=== PATIENT | female | born 1950 | race Caucasian/White ===

== ENCOUNTER 2018-12-27 13:36 | Emergency (ER) | payer MEDICARE, SELFPAY ==
[2018-12-27 13:37] VITALS: BP 156/83; PULSE 64; RESP 18; TEMP 36.6; O2SAT 99; BMI 32.1
--- NOTE | 2018-12-27 14:12 | CT_ITS ---
STUDY: CT BRAIN WITHOUT CONTRAST REASON FOR EXAM: Female, 68 years old. Dizziness, fall, hit nose and left face. RADIATION DOSAGE (If Supplied By Facility): CTDIvol = ( 44.99 ) mGy, DLP = ( 762.36 ) mGycm TECHNIQUE: Transaxial CT imaging of the brain was performed without administration of intravenous contrast material. Individualized dose optimization techniques were used for this CT. COMPARISON: No relevant priors. FINDINGS: There is minor left supraorbital soft tissue swelling. Normal calvarium. There are atherosclerotic calcifications of the distal internal carotid and vertebral arteries. There is mild cerebral atrophy with widening of the extra-axial spaces and ventricular dilatation. Normal white matter tracts of the cerebral hemispheres. Normal basal ganglia and thalami. Normal brainstem. Normal cerebellum. There is no intracranial hemorrhage. There are no findings of an acute ischemic infarction. Normal visualized paranasal sinuses. CT/Brain/Head without Contrast IMPRESSION: Chronic involutional changes of the brain. Minor left supraorbital soft tissue swelling. No acute intracranial injury. Electronically Signed: Juvenal Garcia MD at 15:02 EDT , Service support ,
--- NOTE | 2018-12-27 15:30 | ED.VISSUMM ---
- ER Visit Summary Date of Service: 12/27/18 Chief Complaint: Fall tripped History of Present Illness: The patient is a 68 F on the floor while walking no other injury other than facial injuries no loss consciousness no neck pain. Physical Examination: [] Otherwise normal exam, pupils are equal reactive, she has a supra and infraorbital ecchymoses, she has no nasal septal hematoma her GCS is 15 she has no C-spine tenderness or any other sources of injury Emergency Department Course and Treatment: CT head is negative I will discharge in stable condition with reassurance Discharge stable condition Impression: [Closed head injury] This note was generated with [employer] dictation software. It may contain incorrect words, spelling, and punctuation that were not noted in review of the chart prior to signing ED Disposition - Plan for ED Patient: Disposition: Home or Assisted Living Instructions: ED Head Injury Closed Referrals: Adiel Walls MD [Primary Care Provider] - 3-5 Days
[2018-12-27 15:45] VITALS: BP 146/79; PULSE 59; RESP 16; O2SAT 98
== END 2018-12-27 15:46 | disposition home or self-care (01) ==
PROVIDERS: Emergency Provider Emergency Medicine; Family Provider Internal Medicine; PCP Internal Medicine
DX: S09.90XA Unspecified injury of head, initial encounter (principal); W01.0XXA Fall on same level from slipping, tripping and stumbling without subsequent striking against object, initial encounter; Z91.81 History of falling; Y93.01 Activity, walking, marching and hiking; Y92.9 Unspecified place or not applicable; I10 Essential (primary) hypertension; F32.9 Major depressive disorder, single episode, unspecified; Z79.82 Long term (current) use of aspirin; Z79.899 Other long term (current) drug therapy
CPT/HCPCS: 70450; 99282

== ENCOUNTER 2024-12-23 13:24 | Inpatient (IN) | payer MEDICARE, MEDICAID, SELFPAY ==
[2024-12-23] VITALS (9 sets, daily range): BP systolic 127–215; BP diastolic 58–108; PULSE 75–114; RESP 16–20; TEMP 36.5–37; O2SAT 93–98; BMI 26.8; BMI 26.4
--- NOTE | 2024-12-23 13:44 | ED.RN ---
this rn went into pt room to do assessment when pt room had 3 visitors in room. this rn inform pt visitors only 2 people are allowed in room at a time but they can switch out as much as they would like. pt visitor alisha her hand to this rn's face and stated we know, we are figuring out who is leaving. i am staying because i have anixtey. this rn began discussing with pt about why pt was wanting to be seen when this rn was interrupted by yelling and the other pt visitor stated no she just needs to mind her [employer] business. this rn stopped talking to pt and directed attention towards the yelling pt visitor and this rn stated i am going to get security. when pt visitor alisha her finger to this rn's face and stated we were told we could all come back here but only 2 people in the room, so i WILL be standing in the hallway. this rn stated due to our policy visitors are not allowed to special investigator hallways and only 2 people in the the pt room, you do not need to yell or raise your voice. i am going to get security to deescalate this situation. this rn left the pt room and informed sanya aguirre and charge nurse ritika. this rn was informed that both pt visitors left the department yelling and verbalzing that they will be calling into administration. tg rn in triage gave them information to call.
--- NOTE | 2024-12-23 13:46 | EDS_ITS ---
HPI History of Present Illness HPI Narrative: 74-year-old female history of diabetes but currently on no medications. She has not seen her armed security officer for probably a year or more or her primary care physician. She has had a chronic ulceration on the bottom of her right heel. Family states that she will let them to help her take care of it. It is getting worse. She has swelling of her foot and is starting to smell. No prior surgery to this. Chief Complaint: Wound Informant: patient and family Onset/Context/Timing Onset: Month(s) Context: Gradual Onset Timing: Continuous Current Severity: Mild Maximum Severity: Mild Associated Symptoms Associated Symptoms: Negative for Parasthesia, Weakness or Loss of Funtion Narrative Narrative: 74-year-old female history of diabetes currently on no meds has a chronic right heel ulceration. Family states is getting worse. She has redness now the bottom of her foot, swelling and an odor to it. They deny any drainage. No fall or trauma. She has a armed security officer and a primary care physician but has not seen either for more than a year. Prior similar symptoms: Yes Recent Illness/Hospitalization: No PFSH PFSH Home Medications ?Medication ?Instructions ?Recorded ?Last Taken ?Type Ranitidine [Zantac] 300 mg PO DAILY 09/27/15 Unk nown History Verapamil Hcl [Verapamil Er] 180 mg PO DAILY 09/27/15 Unknown History albuterol sulfate 90 mcg/actuation 2 puff inhalation Q 6H PRN PRN 09/27/15 Unknown History aerosol inhaler (ProAir HFA) Shortness Of Breath aspirin 81 mg tablet,delayed 81 mg PO DAILY@0800 09/27 Unknown History release atorvastatin 40 mg tablet 40 mg PO QHS 09/27/15 Unknow n History baclofen 10 mg tablet 10 mg PO TID 09/27/15 Unknow n History enalapril maleate 20 mg tablet 20 mg PO BID 09/27/15 U nknown History (Vasotec) etodolac 500 mg tablet 500 mg PO BID 09/27/15 Unkno wn History fluticasone propionate 50 1 spray DAILY 09/27/15 Unkno wn History mcg/actuation nasal spray,suspension hydrochlorothiazide 25 mg tablet 25 mg PO DAILY Unknown History loratadine 10 mg tablet (Allergy 10 mg PO DAILY Unknown History Relief (loratadine)) metformin 500 mg tablet 500 mg PO BIDCM 09/27/15 Unk nown History multivitamin with folic acid 400 1 tab PO DAILY Unknown History mcg tablet (Thera) trazodone 50 mg tablet 50 mg PO QHS 09/27/15 Unknow n History Ibuprofen [Motrin] 800 mg PO TID PRN PRN Fever #20 08/22/16 Unknown Rx tabs benzonatate 100 mg capsule 100 mg PO TID PRN PRN Cough ##20 08/22/16 Unknown Rx oseltamivir 75 mg capsule 75 mg PO BID ##10 08/22/16 U nknown Rx Allergy/AdvReac Type Severity Reaction Status Date / Time No Known Allergies Allergy Verified 12/23/24 13:24 Social History (Updated 12/23/24 @ 14:02 by Krystal Gambino) housing: house Smoking Status: Never smoker ROS ROS ED ROS Narrative Patient denies recent illness. She denies fever. Constitutional Constitutional ED: Denies chills or fever(s) Eyes Eyes: Denies blurry vision ENT ENT ED: Denies ear pain Cardiovascular Cardiovascular: Denies chest pain Respiratory/Chest Respiratory/Chest: Denies cough or dyspnea Gastrointestinal Gastrointestinal: Denies abdominal pain, diarrhea, nausea or vomiting Genitourinary Genitourinary ED: Denies dysuria or hematuria Musculoskeletal Musculoskeletal: Denies arthralgias Integumentary Denies abscess Neurologic Neurologic: Denies headache(s) Psychiatric Psychiatric: Denies anxiety Endocrine Endocrinology: Denies polydipsia Hematologic/Lymphatic Hematologic/Lymphatic: Denies easy bleeding, easy bruising or lymphadenopathy Allergic/Immunologic Allergic/Immunologic ED: Denies mouth swelling, tongue swelling or urticaria EXAM Physical Exam Narrative Exam Narrative: 74-year-old female vital signs stable show blood pressure is elevated 215/106. She has a history of hypertension but currently taking no medications. H EENT exam pupils round react light. Moist mucous membranes. Neck nontender no JVD. No lymphadenopathy. Lungs clear to auscultation bilaterally. Heart tachycardic rate 105 no murmur. Chest wall and ribs nontender. Abdomen soft nontender. Moving all 4 extremities. Specifically the right lower leg and foot there is 1+ edema. She has a quarter sized ulceration hole in the bottom of her right heel. The bottom of her foot is red the foot is swollen. She has a palpable DP pulse. She can wiggle her toes. She has touch sensation. Currently there is no discharge. There is no pus. There is a strong odor to the wound. There is no lymphangitic streaking or inguinal lymphadenopathy. She has dorsi plantarflexion. Neurologically she is awake and alert. Answering questions following commands. No focal motor deficits. Const Vital Signs: 12/23/24 13:25 12/23/24 13:27 12/23/24 14:04 Temperature 97.7 F L 98.3 F 98.3 F Temperature Source Oral Oral Pulse Rate 114 H 82 82 Respiratory Rate 20 H 18 18 Blood Pressure 215/106 H 154/108 H 154/108 H Blood Pressure Mean 142 123 123 Pulse Ox 95 98 98 Oxygen Delivery Method Room Air Positive well nourished and well developed; Negative for cachectic, contractures or unkempt General Appearance ED: well developed and NAD; Negative for unkempt, cachectic or contractures Nutritional Appearance: Negative for cachectic HEENT Reports moist mucous membranes normocephalic and atraumatic Eyes PERRL Neck full ROM and supple Chest Wall inspection of chest normal and palpation of chest normal Resp normal respiratory effort, no retractions and clear to auscultation bilaterally Cardio regular rate, regular rhythm, S1 normal heart sound, S2 normal heart sound and no murmurs GI non-tender and no masses Auscultation: normoactive bowel sounds Palpation: soft; Negative for tender, guarding or rebound tenderness present Back/Spine no CVA tenderness Extremity full ROM; Negative for normal to inspection Extremity Narrative: Right foot swelling. Right on the bottom. Quarter sized ulceration on the heel is chronic. No discharge. Foul odor. Palpable DP pulse. Able to wiggle her toes. Normal dorsi plantarflexion. Normal touch sensation. She also has edema in her right lower leg between the knee and ankle. There is no lymphangitic streaking or inguinal lymphadenopathy. General Extremety ED: Yes edema General Extremity: edema Neuro oriented x3, CN's II-XII intact bilaterally, moves all extremities and no sensory deficits noted Sensorium / Orientation: alert, oriented to person, oriented to place and oriented to time; Negative for orientation impaired or confused Motor Exam: strength 5/5 throughout Psych mental status grossly normal Appearance: Negative for unkempt Skin No no wounds Skin Narrative: Chronic ulceration right heel. Currently infected. Cellulitis. Swollen. Foul odor. Lesions: no lesions Rashes: No no rashes MDM MDM MDM Narrative Medical decision making narrative: 74-year-old female diabetic but on no meds. Has not seen a armed security officer or primary care physician for a year or longer. Basically has an infected right heel diabetic ulcer. She will be started on Zosyn. X-ray. Labs. I will speak to the hospitalist about admission. Repeat exam unchanged at 3 PM. Hospitalist on page for admission. Patient is resting comfortably. Has been noticing a change in her right foot. I also spoke to podiatry Dr. Tyler Ware who will be consulted by the hospitalist. History & Record Review Discussion w/independent historian: Patient Additional record(s) reviewed:: Prior inpatient record, Prior outpatient record, Prior ED visit and Prior labs Lab Data Attestation: I reviewed the patient's lab results. Lab results narrative: CBC shows a white count 7.4. H&H 13 and 42. Platelets 337. Electrolytes show potassium 3.2. Gap 13. Normal BUN of 12 creatinine 0.83. Glucose 126. Sed rate is pending. Will be checked out to the hospitalist. Labs: Laboratory Results - last 24 hr 12/23/24 13:54 WBC 7.4 RBC 4.86 Hgb 13.5 Hct 42.0 MCV 86.4 MCH 27.8 MCHC 32.1 RDW Std Deviation 43.9 RDW Coeff of Be 14.0 Plt Count 337 MPV 9.2 Immature Gran % (Auto) 0.300 Neut % (Auto) 70.8 H Lymph % (Auto) 20.8 [place] % (Auto) 5.7 Eos % (Auto) 1.9 Baso % (Auto) 0.5 Absolute Neuts (auto) 5.3 Absolute Lymphs (auto) 1.54 Nucleated RBC % 0 Sodium 140 Potassium 3.2 L Chloride 102 Carbon Dioxide 24.3 Anion Gap 13 BUN 12 Creatinine 0.83 Estim Creat Clear Calc 51.58 Est GFR (MDRD) Non-Af 73 BUN/Creatinine Ratio 14.4 Glucose 126 H Calcium 9.5 Radiography Diagnostic Testing: Clinical Impression(s) from Imaging Studies Foot X-Ray 12/23/24 14:04 IMPRESSION: No obvious radiographic evidence of osteomyelitis. However, if clinical suspicion remains high, further evaluation with 3 phase bone scan or MRI is recommended. Reading Location: [facility] Right foot x-ray, 3 views, interpreted by myself shows soft tissue ulcer. There is chronic bony changes. No obvious signs of subcu air otherwise. No signs of osteomyelitis. Chronic changes. Discharge Plan Triage Chief Complaint: Wound ED Provider: Tyler Gray Dx/Rx/DC Orders Prescriptions: No Action trazodone 50 MG tablet 50 mg PO QHS aspirin 81 MG tablet 81 mg PO DAILY@0800 baclofen 10 MG tablet 10 mg PO TID albuterol sulfate [ProAir HFA] 1 PUFF inhaler 2 puff inhalation Q6H PRN PRN (Reason: Shortness Of Breath) etodolac 500 MG tablet 500 mg PO BID fluticasone propionate 1 SPRAY spray,suspension 1 spray NASAL DAILY atorvastatin 40 MG tablet 40 mg PO QHS metformin 500 MG tablet 500 mg PO BIDCM enalapril maleate [Vasotec] 20 MG tablet 20 mg PO BID hydrochlorothiazide 25 MG tablet 25 mg PO DAILY loratadine [Allergy Relief (loratadine)] 10 MG tablet 10 mg PO DAILY multivitamin with folic acid [Thera] 1 TABLET tablet 1 tab PO DAILY Ranitidine [Zantac] 300 MG tablet 300 mg PO DAILY Verapamil Hcl [Verapamil Er] 180 MG Cap24h.Pel 180 mg PO DAILY benzonatate 100 MG capsule 100 mg PO TID PRN PRN (Reason: Cough) Qty: 20 0RF oseltamivir 75 MG capsule 75 mg PO BID Qty: 10 0RF Ibuprofen [Motrin] 800 MG tablet 800 mg PO TID PRN PRN (Reason: Fever) Qty: 20 0RF Primary Care Provider: Adiel Walls Referrals: Adiel Walls MD [Primary Care Provider] - Print Language: Estonian
[2024-12-23] MEDS: Piperacil/Tazobactam 4.5 GM in 0.9% Normal Saline (100mL MB+) 100 ML IV (13:59)
--- NOTE | 2024-12-23 14:04 | RAD_ITS ---
EXAM: XR Right Foot Complete, 3 or More Views CLINICAL INDICATION: RIGHT FOOT HEEL ULCER /INFECTED. TECHNIQUE: Frontal, lateral and oblique views of the right foot. COMPARISON: No relevant prior studies available. FINDINGS: BONES/JOINTS: 1.6 cm ulcer of the plantar aspect of the calcaneus. No obvious radiographic evidence of osteomyelitis. However, if clinical suspicion remains high, further evaluation with 3 phase bone scan or MRI is recommended. No acute fracture. No dislocation. No erosive changes to the osseous structures. SOFT TISSUES: Soft tissue swelling. No radiopaque foreign body. RAD/Foot min 3 Views IMPRESSION: No obvious radiographic evidence of osteomyelitis. However, if clinical suspici on remains high, further evaluation with 3 phase bone scan or MRI is recommended. Reading Location: [facility]
[2024-12-23 14:54] LABS: Anion Gap 13 (5-15); BUN 12 mg/dL (4-19); BUN/Creat Ratio 14.4 RATIO (10-20); Calcium,Total 9.5 mg/dL (7.6-11.0); Carbon Dioxide 24.3 mmol/L (21.0-32.0); Chloride 102 mmol/L (98-108); Creatinine, Serum 0.83 mg/dL (0.70-1.20); EST Glomerular Filtration Rate 73 (>60); Estimated Creatinine Clearance 51.58 ml/min (50-250); Glucose 126 mg/dL (70-99); Potassium 3.2 mmol/L (3.3-5.1); Sodium Level 140 mmol/L (133-145)
[2024-12-23 14:57] LABS: Absolute Lymphocyte Count 1.54 X10^3/uL (0.83-4.51); Absolute Neutrophil Count 5.3 X10^3/uL (2.0-7.7); Basophil# 0.04 X10^3/uL; Basophil% 0.5 % (0-1); Eosinophil# 0.14 X10^3/uL; Eosinophils% 1.9 % (0-5); Hemoglobin 13.5 g/dL (12.0-15.0); Lymphocyte # 1.54 X10^3/ul (0.83-4.51); Lymphocyte % 20.8 % (19-41); Mean Corp Hgb Conc 32.1 g/dL (32-36); Mean Corpuscular Hgb 27.8 pg (27.0-32.0); Mean Corpuscular Volume 86.4 fL (81-99); Mean Platelet Vol. 9.2 fl (6.2-12.0); Monocyte# 0.42 X10^3/uL; Monocyte% 5.7 % (0-10); NRBC Flagged by Analyzer 0 % (0-5); Neutrophil # 5.25 X10^3/uL (2.7-7.7); Neutrophil % 70.8 % (47-70); Platelet Count 337 K/mm3 (150-450); RBC Distribution Width SD 43.9 fl (35.1-43.9); Red Blood Count 4.86 M/mm3 (4.2-5.4); White Blood Count 7.4 K/mm3 (4.4-11.0)
[2024-12-23 15:18] LABS: Erythrocyte Sedimentation Rate 14 mm/hr (0-30)
--- NOTE | 2024-12-23 15:36 | CASEMGMT ---
Care Management Face to Face with patient for initial transition planning/care coordination assessment in the ED. This writer technical publications introduced self and role at [facility]. Patient alert and oriented. Patient willing to participate in assessment and is able to answer all questions appropriately. Care providers, pharmacy, and demographics verified. Admitting Diagnosis: diabetic foot infection, cellulitis Other diagnosis history: diabetes PCP: Adiel Walls (at least a year without seeing) Specialists: application designer, but hasn't seen in about a year. Preferred Pharmacy: [facility] Insurance: [employer] (primary). [employer] (secondary). Prescription Benefit: yes Living Will/HPOA: none, but would like information. LNOK: Marivel person Living Arrangements: living with Marivel in Marivel's car for at least 6 months. Transportation: patient does not have combine driver's license, so Marivel drives patient to necessary appointments. DME: none HHC: none SNF/Rehab: none Community Resources: no connections Behavioral Health History: Patient goals: Patient wishes to discharge home, but would like housing information. Patient denies any further needs or concerns at this time. Patient does not have phone number as only Marivel has the phone for both of them. Disposition Plan: admission to acute; RN CM/SW to follow for discharge planning needs that may arise. Apurva Shook, MEDICAL FRONT DESK SPECIALIST, HOTBED LEVER OPERATOR
--- NOTE | 2024-12-23 15:42 | HP.PCM.HOS_ITS ---
HPI - General General Date of Admission: 12/23/24 Date of Service: 12/23/24 Chief Complaint: R heel wound HPI Narrative YAMILET RICHARDSON, is a 74-year-old female with history of diabetes not on current medications and hypertension also not taking her medications presented to [facility] ED 12/23/2024 due to worsening of a chronic ulceration on her right heel with foot swelling and foul-smelling discharge. She has not seen her clergy member for a year or more for her primary care physician. Upon arrival to the ED patient afebrile, heart rate initially documented at 114 with a blood pressure of 215/106 however repeat 2 minutes later showed a heart rate of 82 with blood pressure 154/108, suspect that that is the real heart rate and blood pressure as it was consistent with vitals documented 40 minutes later. Labs revealed a white blood cell count of 7.4, hemoglobin 13.5, potassium 3.2 with glucose 126. Foot x-ray with no obvious osteomyelitis with soft tissue swelling. Podiatry contacted and said they would see the patient in consultation. Patient given a dose of Zosyn and hospitalist contacted for admission. Patient evaluated at bedside. She reports she has a history of foot ulcers but notes that they usually heal if she soaks them and elevates them however right now she is living in a car with multiple people so she has a hard time keeping clean and her legs are always dangling down. She is not currently taking any of her home medications as she reports they have not been sent into the pharmacy recently. Denies any fevers, notes that this wound on her foot has worsened over the past month and she finally thought she should get it checked out but does think it was probably a little bit better over the past week or so. [facility] Home Medications ?Medication ?Instructions ?Recorded ?Last Taken ?Type Ranitidine [Zantac] 300 mg PO DAILY 09/27/15 Unk nown History Verapamil Hcl [Verapamil Er] 180 mg PO DAILY 09/27/15 Unknown History albuterol sulfate 90 mcg/actuation 2 puff inhalation Q 6H PRN PRN 09/27/15 Unknown History aerosol inhaler (ProAir HFA) Shortness Of Breath aspirin 81 mg tablet,delayed 81 mg PO DAILY@0800 09/27 Unknown History release atorvastatin 40 mg tablet 40 mg PO QHS 09/27/15 Unknow n History baclofen 10 mg tablet 10 mg PO TID 09/27/15 Unknow n History enalapril maleate 20 mg tablet 20 mg PO BID 09/27/15 U nknown History (Vasotec) etodolac 500 mg tablet 500 mg PO BID 09/27/15 Unkno wn History fluticasone propionate 50 1 spray DAILY 09/27/15 Unkno wn History mcg/actuation nasal spray,suspension hydrochlorothiazide 25 mg tablet 25 mg PO DAILY Unknown History loratadine 10 mg tablet (Allergy 10 mg PO DAILY Unknown History Relief (loratadine)) metformin 500 mg tablet 500 mg PO BIDCM 09/27/15 Unk nown History multivitamin with folic acid 400 1 tab PO DAILY Unknown History mcg tablet (Thera) trazodone 50 mg tablet 50 mg PO QHS 09/27/15 Unknow n History Ibuprofen [Motrin] 800 mg PO TID PRN PRN Fever #20 08/22/16 Unknown Rx tabs benzonatate 100 mg capsule 100 mg PO TID PRN PRN Cough ##20 08/22/16 Unknown Rx oseltamivir 75 mg capsule 75 mg PO BID ##10 08/22/16 U nknown Rx acetaminophen 500 mg tablet 1,000 - 1,500 mg PO Q6H NM N fever 12/23/24 12/23/24 History (Tylenol Extra Strength) or pain Allergy/AdvReac Type Severity Reaction Status Date / Time No Known Allergies Allergy Verified 12/23/24 13:24 Social History (Updated 12/23/24 @ 14:02 by Krystal Gambino) housing: house Smoking Status: Never smoker ROS ROS Narrative General: Denies fever/chills HENT: Denies headache, denies stuffy nose, denies sore throat EYES: Denies changes in vision Resp: Denies cough, denies shortness of breath Cardiac: Denies chest pain GI: Denies abdominal pain, denies changes in bowel, denies nausea/vomiting : Denies changes in urination Extremity: Some swelling around heel MSK: Denies weakness Neuro: Denies any numbness/tingling Heme: Denies any bleeding or bruising Skin: Has ulceration on bottom of right heel with some surrounding swelling Psychiatric: No complaints voiced Vital Signs Vital Signs Vital Signs: 12/23/24 13:25 12/23/24 13:27 12/23/24 14:04 Temperature 97.7 F L 98.3 F 98.3 F Temperature Source Oral Oral Pulse Rate 114 H 82 82 Respiratory Rate 20 H 18 18 Blood Pressure 215/106 H 154/108 H 154/108 H Blood Pressure Mean 142 123 123 Pulse Ox 95 98 98 Oxygen Delivery Method Room Air 12/23/24 14:27 12/23/24 15:00 Temperature 98.6 F 98.6 F Temperature Source Oral Oral Pulse Rate 78 75 Respiratory Rate 18 18 Blood Pressure 145/89 H 140/87 H Blood Pressure Mean 107 104 Pulse Ox 98 98 Oxygen Delivery Method Room Air Room Air Weight Weight: 66.5 kg Body Mass Index (BMI) 26.8 Physical Exam Narrative General: Alert, no apparent distress HEENT: Atraumatic, normocephalic Eyes: Anicteric, normal conjunctiva, extraocular movements grossly intact Neck: Supple Respiratory: Clear to auscultation bilaterally, normal respiratory effort Cardiovascular: Regular rate and rhythm GI: Soft, nontender, nondistended Extremities: No pitting edema Musculoskeletal: Moving all extremities Neuro: No overt focal neurological deficits Skin: Patient with quarter size clean-based ulceration without drainage, has greenish discoloration around it the patient thinks is from a different pair of socks she was wearing Psych: Cooperative Results Lab / Micro Data 12/23/24 13:54 12/23/24 13:54 Labs: Laboratory Results - last 24 hr 12/23/24 13:54: WBC 7.4, RBC 4.86, Hgb 13.5, Hct 42.0, MCV 86.4, MCH 27.8, MCHC 32.1, RDW Std Deviation 43.9, RDW Coeff of Be 14.0, Plt Count 337, MPV 9.2, Immature Gran % (Auto) 0.300, Neut % (Auto) 70.8 H, Lymph % (Auto) 20.8, [place] % (Auto) 5.7, Eos % (Auto) 1.9, Baso % (Auto) 0.5, Absolute Neuts (auto) 5.3, Absolute Lymphs (auto) 1.54, Nucleated RBC % 0, ESR 14, Sodium 140, Potassium 3.2 L, Chloride 102, Carbon Dioxide 24.3, Anion Gap 13, BUN 12, Creatinine 0.83, Estim Creat Clear Calc 51.58, Est GFR (MDRD) Non-Af 73, BUN/Creatinine Ratio 14.4, Glucose 126 H, Calcium 9.5 Imaging Radiology Impression Foot X-Ray 12/23/24 14:04 IMPRESSION: No obvious radiographic evidence of osteomyelitis. However, if clinical suspicion remains high, further evaluation with 3 phase bone scan or MRI is recommended. Reading [facility] Assessment & Plan Assessment/Plan (1) Ulcer of right heel: (2) Homelessness: PLAN: Plan #Acute on chronic R diabetic foot wound -Podiatry c/s -Wound care c/s - Zosyn started in the ED, will continue -Also given patient is homeless and living in a car with no wound care or sanitary conditions feel it is reasonable to add coverage with vancomycin and de-escalate as appropriate -Cxs ordered -PT/OT # Homelessness - Presently living in a car with multiple people - Case management consult #Type 2 diabetes mellitus -Glucose checks and sliding scale insulin - Will check A1c #Hypertension - Patient not taking any of her home antihypertensives at this time, med list left as unverified because patient not taking any medications but it seems these are the medications she supposed to be taking - Will resume patient's home aspirin and statin and will add back an GUEVARA inhibitor for her blood pressure #Hypokalemia -Replace -Repeat in the AM #DVT ppx: SCDs Cristiane Rodriguez MD Charges/Coding Visit Charges Inpatient E&M: 23270 Init Hosp L2
[2024-12-23] MEDS: Potassium Chloride Oral Tablet 20 MEQ 40 MEQ PO (17:06)
[2024-12-23] MEDS: 0.9% Normal Saline (250mL Bag) 250 ML 15 ML IV (17:06)
[2024-12-23] MEDS: Vancomycin IV 1,000 MG/200 ML BAG 200 MG IV (17:07)
[2024-12-23] MEDS: 0.9% Saline Lock 10 ML Syringe IV (17:09)
[2024-12-23 17:17] LABS: Bedside Glucose 84 mg/dL (74-106)
--- NOTE | 2024-12-23 17:33 | PCM.RX.CS ---
Consult Antibiotic Management Pharmacy has been consulted to manage selected antibiotic: Vancomycin Type of Intervention Type of Consult: New start Suspected Infection Suspected Infection: Skin/Soft tissue Prior Doses of Antibiotics Prior Doses of Antibiotics Received/Current Regimen: Loading dose; standard 1000 mg once over an hour Maintenance dose 750 q12h Labs Labs: Sodium 140 mmol/L (133-145) 12/23/24 13:54 Potassium 3.2 mmol/L (3.3-5.1) L 12/23/24 13:54 Chloride 102 mmol/L (98-108) 12/23/24 13:54 Carbon Dioxide 24.3 mmol/L (21.0-32.0) 12/23/24 13:54 Anion Gap 13 (5-15) 12/23/24 13:54 BUN 12 mg/dL (4-19) 12/23/24 13:54 Creatinine 0.83 mg/dL (0.70-1.20) 12/23/24 13:54 Est GFR (MDRD) Non-Af 73 (>60) 12/23/24 13:54 BUN/Creatinine Ratio 14.4 RATIO (10-20) 12/23/24 13:54 Glucose 126 mg/dL (70-99) H 12/23/24 13:54 Dosing Weight Weight used for dosin.68 kg Goal Trough Goal Trough: 15-20 mcg/mL Pharmacy Plan for Drug Dosing Pharmacy Plan for Drug Dosing: SCr: 0.83 CrCl 51.58 Pharmacy Service will continue to monitor and adjust dosing as required. Follow-Up Labs Follow-Up Labs: Trough: Vancomycin Date/Time Labs Ordered Labs to be done on [date and time ordered]: 12/25/2024 @0430
--- NOTE | 2024-12-23 19:33 | PCM.CONS.GEN ---
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 Reviewed diagnostic data including labs and right foot xrays from today. Right heel ulceration was debrided in excisional fashion using a 15 blade down to healthy viable base and margins - down to and including the subcutaneous tissue layer, the area debrided measured 2cm x 2cm and down to and including the subcutaneous tissue layer. A wound culture was obtained and sent to microbiology. No anesthesia was needed due to patient's peripheral neuropathy. Hemostasis was achieved using gauze and pressure. There was minimal blood loss. A dressing was applied to the site using betadine soln, 4x4 gauze, kerlix and emilee dressing. Change BID. Keep right heel offloaded. No weightbearing right foot. Did order CAM boot to keep foot protected when patient is up and in transit. Reviewed right foot xrays and no gas or evidence of infection, however patient is diabetic and has chronic ulcer that is infected requiring admission - further evaluation is medically necessary - MRI was ordered for further evaluation. Also given chronic ulceration to right heel noninvasive lower extremity arterial studies were ordered. No evidence of acute infection at this time. Podiatry will continue to follow, thank you for consultation. HPI Consult Data Date of Consult: 12/23/24 HPI Narrative Reason for Consultation: Right heel ulcer infection HPI Narrative: YAMILET RICHARDSON, is a 74 F who presents with chronic wound to the bottom of her right heel. She relates she has been putting betadine, hydrogen peroxide, and neosporin on the wound. She relates she sleeps in a van. She noticed redness and swelling and concerned about infection from the heel wound. She presented to ER today, has been admitted for further management. Right foot xrays have been obtained and negative for gas or osteomyelitis. She relates to history of diabetes. She is resting in bed watching TV. [facility] Medical History (Updated 12/23/24 @ 19:[address] Lupillo Ware, [place]) Bipolar disorder Anxiety Chronic pain Non-smoker Asthma Hypertension Home Medications ?Medication ?Instructions ?Recorded ?Last Taken ?Type Ranitidine [Zantac] 300 mg PO DAILY 09/27/15 Unknown History Verapamil Hcl [Verapamil Er] 180 mg PO DAILY 09/27/15 Unknown History albuterol sulfate 90 mcg/actuation 2 puff inhalation Q6H PRN PRN 09/27/15 Unknown History aerosol inhaler (ProAir HFA) Shortness Of Breath aspirin 81 mg tablet,delayed 81 mg PO DAILY@0800 09/27/15 Unknown History release atorvastatin 40 mg tablet 40 mg PO QHS 09/27/15 Unknown History baclofen 10 mg tablet 10 mg PO TID 09/27/15 Unknown History enalapril maleate 20 mg tablet 20 mg PO BID 09/27/15 Unknown History (Vasotec) etodolac 500 mg tablet 500 mg PO BID 09/27/15 Unknown History fluticasone propionate 50 1 spray DAILY 09/27/15 Unknown History mcg/actuation nasal spray,suspension hydrochlorothiazide 25 mg tablet 25 mg PO DAILY 09/27/15 Unknown History loratadine 10 mg tablet (Allergy 10 mg PO DAILY 09/27/15 Unknown History Relief (loratadine)) metformin 500 mg tablet 500 mg PO BIDCM 09/27/15 Unknown History multivitamin with folic acid 400 1 tab PO DAILY 09/27/15 Unknown History mcg tablet (Thera) trazodone 50 mg tablet 50 mg PO QHS 09/27/15 Unknown History Ibuprofen [Motrin] 800 mg PO TID PRN PRN Fever #20 08/22/16 Unknown Rx tabs benzonatate 100 mg capsule 100 mg PO TID PRN PRN Cough ##20 08/22/16 Unknown Rx oseltamivir 75 mg capsule 75 mg PO BID ##10 08/22/16 Unknown Rx acetaminophen 500 mg tablet 1,000 - 1,500 mg PO Q6H PRN fever 12/23/24 12/23/24 History (Tylenol Extra Strength) or pain Allergy/AdvReac Type Severity Reaction Status Date / Time No Known Allergies Allergy Verified 12/23/24 13:24 Social History (Updated 12/23/24 @ 14:02 by Krystal Gambino) housing: house Smoking Status: Never smoker Physical Exam Const alert, oriented x3 and no apparent distress Constitutional Narrative: Round plantar right heel ulceration down to subcutaneous tissue, there is nonviable tissue to the margins but base is mostly granular tissue, there is some undermining of the margins, there is no probe to bone, there is some mild erythema to foot and leg as well as edema present consistent with cellulitis, no fluctuance, no visible abscess, no crepitus, no blistering present. No other open lesions bilateral foot or ankle. CFT < 2 seconds to all toes. Pedal pulses intact bilateral. No evidence of ischemia to foot or ankle bilateral. Sensation is decreased consistent with chronic peripheral neuropathy bilateral foot. No evidence of charcot neuroarthropathy bilateral foot. No POP or pain on ROM to foot or ankle bilateral. No gross instability to foot or ankle bilateral. Lab / Micro Data 12/23/24 13:54 12/23/24 13:54 Labs: Laboratory Results - last 24 hr 12/23/24 13:54: WBC 7.4, RBC 4.86, Hgb 13.5, Hct 42.0, MCV 86.4, MCH 27.8, MCHC 32.1, RDW Std Deviation 43.9, RDW Coeff of Be 14.0, Plt Count 337, MPV 9.2, Immature Gran % (Auto) 0.300, Neut % (Auto) 70.8 H, Lymph % (Auto) 20.8, [place] % (Auto) 5.7, Eos % (Auto) 1.9, Baso % (Auto) 0.5, Absolute Neuts (auto) 5.3, Absolute Lymphs (auto) 1.54, Nucleated RBC % 0, ESR 14, Sodium 140, Potassium 3.2 L, Chloride 102, Carbon Dioxide 24.3, Anion Gap 13, BUN 12, Creatinine 0.83, Estim Creat Clear Calc 51.58, Est GFR (MDRD) Non-Af 73, BUN/Creatinine Ratio 14.4, Glucose 126 H, Calcium 9.5 12/23/24 16:58: POC Glucose 84 Imaging Radiology Impression Foot X-Ray 12/23/24 14:04 IMPRESSION: No obvious radiographic evidence of osteomyelitis. However, if clinical suspicion remains high, further evaluation with 3 phase bone scan or MRI is recommended. Reading Location: [facility]
--- NOTE | 2024-12-23 19:44 | ART_ITS ---
Reason For Study Reason For Study: RLE Foot Ulcer Procedure A bilateral lower extremity continuous wave Doppler with analog waveform analysis,segmental pressures,and ankle brachial indexes without exercise. Left Segmental Pressures Left posterior tibial artery = 185mmHg. Left dorsalis pedis artery = 169mmHg. Left digit = 135 mmHg. The left posterior tibial artery waveforms are triphasic. The left dorsalis pedis waveforms are triphasic. Right Segmental Pressures Right brachial= 162mmHg. Right posterior tibial artery = 221mmHg. Right dorsalis pedis artery = 179mmHg. Right digit = 137 mmHg. The right posterior tibial artery waveforms are triphasic. The right dorsalis pedis waveforms are triphasic. Indices The right ankle brachial index by the posterior tibial artery is 1.36. The right ankle brachial index by the dorsalis pedis is 1.10. The right digital-brachial index is 0.85. The left ankle brachial index by the posterior tibial artery is 1.14. The left ankle brachial index by the dorsalis pedis is 1.04. The left digital-brachial index is 0.83. VL/Lower Ext Art Exam w/o Exercis Interpretation Summary Triphasic Doppler waveforms are noted at ankle level bilaterally. Pulse-volume recordings appear satisfactory at all levels bilaterally. Resting ankle-brachial indices are normal bilaterally. Digi taran-brachial indices are normal bilaterally. There is no evidence of significant arterial occlusive disease in the lower ext remities bilaterally. Ordering Physician: Lupillo Ware Referring Physician: Adiel Walls Performed By: Nichol Huang RVT
[2024-12-23] MEDS: Piperacil/Tazobactam 3.375 GM in 0.9% Normal Saline (50mL MB+) 50 ML IV (21:00)
[2024-12-23] MEDS: Atorvastatin Calcium 40 MG Tablet PO (21:08)
[2024-12-23 21:30] LABS: Bedside Glucose 96 mg/dL (74-106)
[2024-12-24] MEDS: Acetaminophen 325 MG Tablet 650 MG PO ×2 (01:33→20:15)
[2024-12-24] MEDS: Vancomycin HCl 750 MG in 0.9% Normal Saline (250mL Bag) 250 ML 250 MG IV ×2 (05:20→16:23)
[2024-12-24 05:27] VITALS: BP 133/69; PULSE 84; RESP 16; TEMP 36.7; O2SAT 94
[2024-12-24 06:33] LABS: Absolute Lymphocyte Count 1.54 X10^3/uL (0.83-4.51); Absolute Neutrophil Count 3.8 X10^3/uL (2.0-7.7); Basophil# 0.07 X10^3/uL; Basophil% 1.1 % (0-1); Eosinophil# 0.26 X10^3/uL; Eosinophils% 4.2 % (0-5); Hematocrit 37.6 % (37-47); Hemoglobin 12.2 g/dL (12.0-15.0); Lymphocyte # 1.54 X10^3/ul (0.83-4.51); Mean Corp Hgb Conc 32.4 g/dL (32-36); Mean Corpuscular Volume 86.2 fL (81-99); Mean Platelet Vol. 9.1 fl (6.2-12.0); Monocyte# 0.52 X10^3/uL; Monocyte% 8.4 % (0-10); NRBC Flagged by Analyzer 0 % (0-5); Neutrophil # 3.76 X10^3/uL (2.7-7.7); Platelet Count 298 K/mm3 (150-450); RBC Distribution Width CV 13.9 % (11.6-14.6); RBC Distribution Width SD 43.9 fl (35.1-43.9); Red Blood Count 4.36 M/mm3 (4.2-5.4); White Blood Count 6.2 K/mm3 (4.4-11.0)
[2024-12-24] MEDS: Piperacil/Tazobactam 3.375 GM in 0.9% Normal Saline (50mL MB+) 50 ML IV ×3 (06:44→21:10)
[2024-12-24 07:02] LABS: Hemoglobin A1c 5.7 % (<=5.6)
[2024-12-24 07:03] LABS: Anion Gap 12 (5-15); BUN 11 mg/dL (4-19); BUN/Creat Ratio 13.9 RATIO (10-20); Calcium,Total 8.8 mg/dL (7.6-11.0); Carbon Dioxide 21.1 mmol/L (21.0-32.0); Chloride 108 mmol/L (98-108); Creatinine, Serum 0.82 mg/dL (0.70-1.20); EST Glomerular Filtration Rate 74 (>60); Glucose 98 mg/dL (70-99); Potassium 3.9 mmol/L (3.3-5.1); Sodium Level 141 mmol/L (133-145)
[2024-12-24 07:09] LABS: Bedside Glucose 113 mg/dL (74-106)
[2024-12-24 09:28] VITALS: BP 153/76; PULSE 90; RESP 16; TEMP 36.3; O2SAT 94
--- NOTE | 2024-12-24 09:30 | MRI_ITS ---
PROCEDURE: LOWER EXT/NO JT/W/O 12/24/2024 REASON FOR EXAM: CHRONIC HEEL ULCER WITH INFECTION TECHNIQUE: MRI of the RIGHT lower Extremity. Multiplanar and multisequence images were obtained without IV contrast administration. COMPARISON: COMPARISON : RADIOGRAPHS ON 12/23/2024. FINDINGS: Soft tissue ulcer underlying the posterior aspect of the calcaneum. Underlying soft tissue edema and swelling suggestive of cellulitis without drainable abscess formation. Underlying bone marrow edema of the posterior aspect of the calcaneus suggestive of osteomyelitis without associated drainable intraosseous abscess formation. Small calcaneal spur formation. Enthesophyte formation at the calcaneal insertion of Achilles tendon. Mild tibiotalar, subtalar joint effusions. Mild effusion in the sinus tarsus. Edema of the subtalar ligaments. Degenerative fibrocystic changes surrounding the sinus tarsus. Multifocal patchy bone marrow edema surrounding the tarsal and tarsometatarsal joints, probably secondary to osteopenia. Degenerative joint disease of the tibiotalar, subtalar, tarsal and tarsometatarsal joints. There is normal signal intensity from the remaining visualized bone marrow without evidence of replacement or fracture. No abnormality is seen in the posterior tibialis, flexor digitorum longus tendon and flexor hallucis longus tendon. The peroneus longus and brevis tendons are unremarkable. The tibialis anterior, extensor hallucis longus and extensor digitorum longus tendons are unremarkable. No abnormality is seen in Achilles tendon and teno-osseous insertion. Unremarkable plantar fascia. Unremarkable plantar calcaneal tubercles. Normal intrinsic muscles of the rearfoot. No abnormality is seen distal tibiofibular syndesmotic ligamentous complex. No abnormality is seen in lateral ligamentous complex. No abnormality is seen deltoid ligamentous complexes. The plantar calcaneonavicular (spring) ligament is unremarkable. No abnormality is seen in the tibiotalar articulation. Normal talar dome. MRI/Lower Ext/No Jt/w/o IMPRESSION: 1. Soft tissue ulcer underlying the posterior aspect of the calcaneum. 2. Underlying soft tissue edema and swelling suggestive of cellulitis without d rainable abscess formation. 3. Underlying bone marrow edema of the posterior aspect of the calcaneus sugges tive of osteomyelitis without associated drainable intraosseous abscess formation. 4. Small calcaneal spur formation. 5. Enthesophyte formation at the calcaneal insertion of Achilles tendon. 6. Mild tibiotalar, subtalar joint effusions. 7. Mild effusion in the sinus tarsus. 8. Edema of the subtalar ligaments. 9. Degenerative fibrocystic changes surrounding the sinus tarsus. 10. Multifocal patchy bone marrow edema surrounding the tarsal and tarsometatar prema joints, probably secondary to osteopenia. 11. Degenerative joint disease of the tibiotalar, subtalar, tarsal and tarsomet atarsal joints. Reading Location[facility]
[2024-12-24] MEDS: Aspirin 81 MG TAB.CHEW PO (09:31)
[2024-12-24] MEDS: Lisinopril 5 MG Tablet PO (09:31)
--- NOTE | 2024-12-24 11:12 | PN_ITS ---
Subjective Subjective Patient seen and examined. She had no complaints. She denied any pain in her right foot. She denies any fever, chills, palpitations, dizziness, nausea vomiting or any other symptoms. Review of systems otherwise negative. Objective Data Objective Data Vital Signs: Vital Signs Temp Pulse Resp BP Pulse Ox O2 Del Method 97.4 F L 90 16 153/76 H 94 Room Air 12/24/24 09:28 12/24/24 09:28 12/24/24 09:28 12/24/24 09:28 12/24/24 09:28 12/24/24 09:28 Oxygen Delivery Method Room Air Weight: 144 lb 12.8 oz Body Mass Index (BMI) 26.4 Intake & Output: Intake and Output for Last 24 Hours 12/22/24 12/23/24 12/24/24 23:59 23:59 23:59 Intake Total 300 / 300 715 / 715 Balance 300 / 300 715 / 715 Lab / Micro Data 12/24/24 05:52 12/24/24 05:52 Labs: Laboratory Results - last 24 hr 12/23/24 13:54: WBC 7.4, RBC 4.86, Hgb 13.5, Hct 42.0, MCV 86.4, MCH 27.8, MCHC 32.1, RDW Std Deviation 43.9, RDW Coeff of Be 14.0, Plt Count 337, MPV 9.2, Immature Gran % (Auto) 0.300, Neut % (Auto) 70.8 H, Lymph % (Auto) 20.8, [place] % (Auto) 5.7, Eos % (Auto) 1.9, Baso % (Auto) 0.5, Absolute Neuts (auto) 5.3, Absolute Lymphs (auto) 1.54, Nucleated RBC % 0, ESR 14, Sodium 140, Potassium 3.2 L, Chloride 102, Carbon Dioxide 24.3, Anion Gap 13, BUN 12, Creatinine 0.83, Estim Creat Clear Calc 51.58, Est GFR (MDRD) Non-Af 73, BUN/Creatinine Ratio 14.4, Glucose 126 H, Calcium 9.5 12/23/24 16:58: POC Glucose 84 12/23/24 21:00: S.aureus Protein A PCR Cancelled, MRSA (PCR) Cancelled 12/23/24 21:12: POC Glucose 96 12/24/24 05:52: WBC 6.2, RBC 4.36, Hgb 12.2, Hct 37.6, MCV 86.2, MCH 28.0, MCHC 32.4, RDW Std Deviation 43.9, RDW Coeff of Be 13.9, Plt Count 298, MPV 9.1, Immature Gran % (Auto) 0.300, Neut % (Auto) 61.0, Lymph % (Auto) 25.0, [place] % (Auto) 8.4, Eos % (Auto) 4.2, Baso % (Auto) 1.1 H, Absolute Neuts (auto) 3.8, Absolute Lymphs (auto) 1.54, Nucleated RBC % 0, Sodium 141, Potassium 3.9, Chloride 108, Carbon Dioxide 21.1, Anion Gap 12, BUN 11, Creatinine 0.82, Estim Creat Clear Calc 51.90, Est GFR (MDRD) Non-Af 74, BUN/Creatinine Ratio 13.9, Glucose 98, Hemoglobin A1c 5.7, Calcium 8.8 12/24/24 06:48: POC Glucose 113 H Micro: Microbiology 12/23/24 16:50 Wound - Right Foot Wound Culture - Preliminary GNR Poss Pseudomonas sp Mixed Gram Positive Organisms 12/23/24 16:50 Wound - Right Foot Skin and Soft Tissue MRSA/MSSA (PCR - Final Radiography Diagnostic Testing: Radiology Impression Foot X-Ray 12/23/24 14:04 IMPRESSION: No obvious radiographic evidence of osteomyelitis. However, if clinical suspicion remains high, further evaluation with 3 phase bone scan or MRI is recommended. Reading Location: [facility] Physical Exam Const alert, oriented x3, no apparent distress and well nourished General Appearance: cooperative and well developed HEENT normocephalic, head/scalp atraumatic, moist oral mucous membranes, oropharynx normal and gingiva normal Eyes PERRL and EOMs intact bilaterally Neck no lymphadenopathy and supple Lymph Lymphatic: no lymphadenopathy noted and no lymphedema noted Resp normal respiratory effort, normal air movement and clear to auscultation bilaterally Cardio regular rate, regular rhythm, S1 normal heart sound, S2 normal heart sound and no murmurs GI normal to inspection, nondistended, normoactive bowel sounds, soft to palpation, non-tender and non-distended Extremity Extremity Narrative: RLE wrapped in bandage Skin Skin Narrative: as under extremities Neuro CN's II-XII intact bilaterally, no focal motor deficits and no sensory deficits noted Motor Exam: strength 5/5 throughout and general weakness Psych thought process normal, cooperative and affect normal Assessment & Plan Assessment/Plan (1) Cellulitis of right lower limb: (2) 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 Right lower extremity wrapped in bandage. On IV Zosyn. Wound cultures pending. * Also on IV vancomycin. * PT OT on board. Fall precautions. * Per podiatry to keep right heel offloaded and no weightbearing on the right foot. * Right foot MRI pending. * Wound cultures so far growing gram-negative rods possibly Pseudomonas species as well as mixed gram-positive organisms. #Type 2 diabetes mellitus with peripheral neuropathy: * On insulin sliding scale. Checks ACHS. * A1C is 5.7 #Hypertension * Patient's has not been taking any of her home blood pressure medications. Her lisinopril. #Hypokalemia: Replace and trend DVT prophylaxis: SCDs. Will add on Lovenox. Disposition: Patient is currently homeless. Case management on board to help facilitate discharge. Charges/Coding Visit Charges Inpatient E&M: 79802 Subs Hosp L2
--- NOTE | 2024-12-24 11:19 | CASEMGMT ---
SW met with patient. Introduced self and role at [facility]. Patient stated she is residing in a van with 6 other individuals. Patient said one of the individuals is her niece and another is her sister. Patient said her niece signed up for [employer] for them. Patient said her niece also spoke with [employer]. SW asked patient if her plan is to return to the van or if she would like to go to a retirement. Patient stated her plan is to return to the van. SW asked patient if she was aware that they are able to go to [facility] for showers and food. Patient stated she was aware of this. SW provided patient with information on [employer], [employer] including their housing assistance programs, [employer] card, and [employer] list of available apartments. SW pointed out on [employer] card the list of places that serv meals. Patient was very thankful for all of the resources. Patient stated she will give them to her niece. SW also discussed Healthcare Power of Animal Control Officer and Healthcare Living Will. Patient did not want to complete the documents at this time. SW explained the documents to patient and let patient know if she would like to complete the documents while at [facility] SW can assist. SW did ask patient if she would need IV antibiotics at discharge would she be willing to go to a longterm facility short term to get the antibiotics. Patient said she does not think she will need IV abx. Plan: d/c back to [place]. Patient given resources. Marisela FUNG
[2024-12-24] MEDS: 0.9% Saline Lock 10 ML Syringe IV ×3 (11:32→16:03)
[2024-12-24 11:50] LABS: Bedside Glucose 103 mg/dL (74-106)
--- NOTE | 2024-12-24 12:46 | PN_ITS ---
Subjective Subjective Patient was seen today for follow up on her right heel. She did get MRI, and also CAM boot right foot. She is sitting up in bed. No new complaints, no f/c/n/v. Objective Data Objective Data Vital Signs: Vital Signs Temp Pulse Resp BP Pulse Ox O2 Del Method 97.4 F L 90 16 153/76 H 94 Room Air 12/24/24 09:28 12/24/24 09:28 12/24/24 09:28 12/24/24 09:28 12/24/24 09:28 12/24/24 09:28 Oxygen Delivery Method Room Air Weight: 65.68 kg Body Mass Index (BMI) 26.4 Intake & Output: Intake and Output for Last 24 Hours 12/22/24 12/23/24 12/24/24 23:59 23:59 23:59 Intake Total 300 / 300 765 / 765 Balance 300 / 300 765 / 765 Lab / Micro Data 12/24/24 05:52 12/24/24 05:52 Labs: Laboratory Results - last 24 hr 12/23/24 13:54: WBC 7.4, RBC 4.86, Hgb 13.5, Hct 42.0, MCV 86.4, MCH 27.8, MCHC 32.1, RDW Std Deviation 43.9, RDW Coeff of Be 14.0, Plt Count 337, MPV 9.2, Immature Gran % (Auto) 0.300, Neut % (Auto) 70.8 H, Lymph % (Auto) 20.8, [place] % (Auto) 5.7, Eos % (Auto) 1.9, Baso % (Auto) 0.5, Absolute Neuts (auto) 5.3, Absolute Lymphs (auto) 1.54, Nucleated RBC % 0, ESR 14, Sodium 140, Potassium 3.2 L, Chloride 102, Carbon Dioxide 24.3, Anion Gap 13, BUN 12, Creatinine 0.83, Estim Creat Clear Calc 51.58, Est GFR (MDRD) Non-Af 73, BUN/Creatinine Ratio 14.4, Glucose 126 H, Calcium 9.5 12/23/24 16:58: POC Glucose 84 12/23/24 21:00: S.aureus Protein A PCR Cancelled, MRSA (PCR) Cancelled 12/23/24 21:12: POC Glucose 96 12/24/24 05:52: WBC 6.2, RBC 4.36, Hgb 12.2, Hct 37.6, MCV 86.2, MCH 28.0, MCHC 32.4, RDW Std Deviation 43.9, RDW Coeff of Be 13.9, Plt Count 298, MPV 9.1, Immature Gran % (Auto) 0.300, Neut % (Auto) 61.0, Lymph % (Auto) 25.0, [place] % (Auto) 8.4, Eos % (Auto) 4.2, Baso % (Auto) 1.1 H, Absolute Neuts (auto) 3.8, Absolute Lymphs (auto) 1.54, Nucleated RBC % 0, Sodium 141, Potassium 3.9, Chloride 108, Carbon Dioxide 21.1, Anion Gap 12, BUN 11, Creatinine 0.82, Estim Creat Clear Calc 51.90, Est GFR (MDRD) Non-Af 74, BUN/Creatinine Ratio 13.9, Glucose 98, Hemoglobin A1c 5.7, Calcium 8.8 12/24/24 06:48: POC Glucose 113 H 12/24/24 11:28: POC Glucose 103 Micro: Microbiology 12/23/24 16:50 Wound - Right Foot Wound Culture - Preliminary GNR Poss Pseudomonas sp Mixed Gram Positive Organisms 12/23/24 16:50 Wound - Right Foot Skin and Soft Tissue MRSA/MSSA (PCR - Final Radiography Diagnostic Testing: Radiology Impression Foot X-Ray 12/23/24 14:04 IMPRESSION: No obvious radiographic evidence of osteomyelitis. However, if clinical suspicion remains high, further evaluation with 3 phase bone scan or MRI is recommended. Reading Location: [facility] Social Homelessness:: Sheltered Physical Exam Const alert, oriented x3 and no apparent distress Constitutional Narrative: Round plantar right heel ulceration down to subcutaneous tissue with healthy viable granular base and viable margins, there is no probe to bone, there is some very minimal erythema to foot and leg as well as edema present consistent with cellulitis but much improved today, no fluctuance, no visible abscess, no crepitus, no blistering present. No other open lesions right foot or ankle. CFT < 2 seconds to all toes, right foot with pedal pulses intact and no evidence of ischemia to foot or ankle. Sensation is decreased consistent with chronic peripheral neuropathy, no evidence of charcot neuroarthropathy, no POP or pain on ROM to foot or ankle right foot. No evidence of DVT. 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 Reviewed diagnostic data including labs and right foot xrays from today. Reviewed MRI right foot and there is noted bone marrow edema to the posterior plantar calcaneus consistent with osteomyelitis. Foot and wound appear clinically improved today. Bedside wound debridement completed on 12/23/2024. No plans for OR at this time. A culture has been obtained and reviewed - patient is on IV antibiotics Vancomycin Zosyn. Keep right heel offloaded. No weightbearing right foot. Keep right foot protected using CAM boot when patient is up and in transit. Also given chronic ulceration to right heel noninvasive lower extremity arterial studies were ordered. No evidence of acute infection at this time. Podiatry will continue to follow.
[2024-12-24 14:27] VITALS: BP 125/67; PULSE 79; RESP 16; TEMP 36.8; O2SAT 95
[2024-12-24] MEDS: 0.9% Normal Saline (250mL Bag) 250 ML 15 ML IV (16:02)
[2024-12-24 16:54] LABS: Bedside Glucose 108 mg/dL (74-106)
[2024-12-24 21:01] VITALS: BP 163/76; PULSE 81; RESP 16; TEMP 36.3; O2SAT 93
[2024-12-24] MEDS: Atorvastatin Calcium 40 MG Tablet PO (21:11)
[2024-12-25 04:07] VITALS: BP 143/69; PULSE 75; RESP 16; TEMP 36.7; O2SAT 95
[2024-12-25 05:07] LABS: Vancomycin, Trough Level 10.7 ug/mL (5.0-15.0)
[2024-12-25] MEDS: Vancomycin HCl 1,250 MG in 0.9% Normal Saline (250mL Bag) 250 ML 167 MG IV ×2 (05:19→16:35)
[2024-12-25] MEDS: Piperacil/Tazobactam 3.375 GM in 0.9% Normal Saline (50mL MB+) 50 ML IV ×3 (05:22→21:11)
--- NOTE | 2024-12-25 05:30 | PCM.RX.CS ---
Consult Antibiotic Management Pharmacy has been consulted to manage selected antibiotic: Vancomycin Type of Intervention Type of Consult: Follow-up Suspected Infection Suspected Infection: Skin/Soft tissue Labs Labs: Sodium 141 mmol/L (133-145) 12/24/24 05:52 Potassium 3.9 mmol/L (3.3-5.1) 12/24/24 05:52 Chloride 108 mmol/L (98-108) 12/24/24 05:52 Carbon Dioxide 21.1 mmol/L (21.0-32.0) 12/24/24 05:52 Anion Gap 12 (5-15) 12/24/24 05:52 BUN 11 mg/dL (4-19) 12/24/24 05:52 Creatinine 0.82 mg/dL (0.70-1.20) 12/24/24 05:52 Est GFR (MDRD) Non-Af 74 (>60) 12/24/24 05:52 BUN/Creatinine Ratio 13.9 RATIO (10-20) 12/24/24 05:52 Glucose 98 mg/dL (70-99) 12/24/24 05:52 Vancomycin Trough 10.7 ug/mL (5.0-15.0) 12/25/24 04:20 Microbiology Microbiology: Microbiology 12/24/24 18:25 Stool Clostridioides difficile (PCR) - Final 12/23/24 16:50 Wound - Right Foot Gram Stain - Final 12/23/24 16:50 Wound - Right Foot Wound Culture - Preliminary GNR Poss Pseudomonas sp Mixed Gram Positive Organisms 12/23/24 16:50 Wound - Right Foot Skin and Soft Tissue MRSA/MSSA (PCR - Final Dosing Weight Weight used for dosin.7 kg Estimated Creatinine Clearance Estimated Creatinine Clearance: 52 Goal Trough Goal Trough: 15-20 mcg/mL Pharmacy Plan for Drug Dosing Pharmacy Plan for Drug Dosing: Vancomycin trough level of 10.7, drawn 12hrs post-dose, was below the target range of 15-20. Will increase dose to 1250mg q12h, and will draw another trough level prior to fourth dose of the new regimen. Pharmacy Service will continue to monitor and adjust dosing as required. Follow-Up Labs Follow-Up Labs: Trough: Vancomycin Date/Time Labs Ordered Labs to be done on [date and time ordered]: 12/26/24 @1700
[2024-12-25] MEDS: Menthol/Lanolin/Calamine/Znox 113 GM Tube 1 APPLIC TOPICAL ×3 (06:34→19:30)
[2024-12-25 06:54] LABS: Bedside Glucose 104 mg/dL (74-106)
[2024-12-25 07:19] LABS: Absolute Lymphocyte Count 1.28 X10^3/uL (0.83-4.51); Absolute Neutrophil Count 6.1 X10^3/uL (2.0-7.7); Basophil# 0.08 X10^3/uL; Eosinophil# 0.27 X10^3/uL; Eosinophils% 3.2 % (0-5); Hematocrit 35.6 % (37-47); Hemoglobin 11.5 g/dL (12.0-15.0); Lymphocyte # 1.28 X10^3/ul (0.83-4.51); Lymphocyte % 15.2 % (19-41); Mean Corp Hgb Conc 32.3 g/dL (32-36); Mean Corpuscular Hgb 27.8 pg (27.0-32.0); Mean Corpuscular Volume 86.2 fL (81-99); Monocyte% 7.1 % (0-10); NRBC Flagged by Analyzer 0 % (0-5); Neutrophil # 6.13 X10^3/uL (2.7-7.7); Platelet Count 266 K/mm3 (150-450); RBC Distribution Width CV 14.1 % (11.6-14.6); RBC Distribution Width SD 44.1 fl (35.1-43.9); Red Blood Count 4.13 M/mm3 (4.2-5.4); White Blood Count 8.4 K/mm3 (4.4-11.0)
[2024-12-25 07:41] LABS: Anion Gap 10 (5-15); BUN 13 mg/dL (4-19); BUN/Creat Ratio 16.5 RATIO (10-20); Calcium,Total 8.7 mg/dL (7.6-11.0); Carbon Dioxide 20.4 mmol/L (21.0-32.0); Chloride 110 mmol/L (98-108); Creatinine, Serum 0.81 mg/dL (0.70-1.20); EST Glomerular Filtration Rate 76 (>60); Estimated Creatinine Clearance 52.55 ml/min (50-250); Glucose 103 mg/dL (70-99); Potassium 3.8 mmol/L (3.3-5.1); Sodium Level 141 mmol/L (133-145)
--- NOTE | 2024-12-25 08:29 | PCM.PROGNOTE ---
Subjective Subjective Patient was seen today for follow up on her right foot. She relates she had diarrhea yesterday, stool sample obtained. She relates it is better today. She is sitting up in bed eating breakfast. Right foot is improved. Objective Data Objective Data Vital Signs: Vital Signs Temp Pulse Resp BP Pulse Ox O2 Del Method 98.1 F 75 16 143/69 H 95 Room Air 12/25/24 04:07 12/25/24 04:07 12/25/24 04:07 12/25/24 04:07 12/25/24 04:07 12/25/24 04:07 Oxygen Delivery Method Room Air Weight: 65.68 kg Body Mass Index (BMI) 26.4 Intake & Output: Intake and Output for Last 24 Hours 12/23/24 12/24/24 12/25/24 23:59 23:59 23:59 Intake Total 300 / 300 2180 / 2430 725 / 725 Output Total 150 / 150 Balance 300 / 300 2030 / 2280 725 / 725 Lab / Micro Data 12/25/24 06:53 12/25/24 06:53 Labs: Laboratory Results - last 24 hr 12/24/24 11:28: POC Glucose 103 12/24/24 16:17: POC Glucose 108 H 12/25/24 04:20: Vancomycin Trough 10.7 12/25/24 06:33: POC Glucose 104 12/25/24 06:53: WBC 8.4, RBC 4.13 L, Hgb 11.5 L, Hct 35.6 L, MCV 86.2, MCH 27.8, MCHC 32.3, RDW Std Deviation 44.1 H, RDW Coeff of Be 14.1, Plt Count 266, MPV 9.0, Immature Gran % (Auto) 0.500, Neut % (Auto) 73.0 H, Lymph % (Auto) 15.2 L, [place] % (Auto) 7.1, Eos % (Auto) 3.2, Baso % (Auto) 1.0, Absolute Neuts (auto) 6.1, Absolute Lymphs (auto) 1.28, Nucleated RBC % 0, Sodium 141, Potassium 3.8, Chloride 110 H, Carbon Dioxide 20.4 L, Anion Gap 10, BUN 13, Creatinine 0.81, Estim Creat Clear Calc 52.55, Est GFR (MDRD) Non-Af 76, BUN/Creatinine Ratio 16.5, Glucose 103 H, Calcium 8.7 Micro: Microbiology 12/23/24 16:50 Wound - Right Foot Gram Stain - Final 12/23/24 16:50 Wound - Right Foot Wound Culture - Preliminary GNR Poss Pseudomonas sp Mixed Gram Positive Organisms 12/23/24 16:50 Wound - Right Foot Skin and Soft Tissue MRSA/MSSA (PCR - Final 12/24/24 18:25 Stool Clostridioides difficile (PCR) - Final Radiography Diagnostic Testing: Radiology Impression Lower Extremity MRI 12/24/24 09:30 IMPRESSION: 1. Soft tissue ulcer underlying the posterior aspect of the calcaneum. 2. Underlying soft tissue edema and swelling suggestive of cellulitis without drainable abscess formation. 3. Underlying bone marrow edema of the posterior aspect of the calcaneus suggestive of osteomyelitis without associated drainable intraosseous abscess formation. 4. Small calcaneal spur formation. 5. Enthesophyte formation at the calcaneal insertion of Achilles tendon. 6. Mild tibiotalar, subtalar joint effusions. 7. Mild effusion in the sinus tarsus. 8. Edema of the subtalar ligaments. 9. Degenerative fibrocystic changes surrounding the sinus tarsus. 10. Multifocal patchy bone marrow edema surrounding the tarsal and tarsometatarsal joints, probably secondary to osteopenia. 11. Degenerative joint disease of the tibiotalar, subtalar, tarsal and tarsometatarsal joints. Reading Location: [address] Homelessness:: Sheltered Physical Exam Const alert, oriented x3 and no apparent distress Constitutional Narrative: Round plantar right heel ulceration down to subcutaneous tissue with healthy viable granular base and viable margins, there is no probe to bone, no erythema to foot, anlke or and leg, minimal edema present, no fluctuance, no visible abscess, no crepitus, no blistering present. No other open lesions right foot or ankle. CFT < 2 seconds to all toes, right foot with pedal pulses intact and no evidence of ischemia to foot or ankle. Sensation is decreased consistent with chronic peripheral neuropathy, no evidence of charcot neuroarthropathy, no POP or pain on ROM to foot or ankle right foot. No evidence of DVT. 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 Reviewed diagnostic data. MRI right foot: there is noted bone marrow edema to the posterior plantar calcaneus consistent with osteomyelitis. Right foot and wound continues to show improvement. Bedside wound debridement completed on 12/23/2024. No plans for OR at this time. A culture has been obtained and reviewed - pseudomonas sp and mixed gram positive organisms, patient is on IV antibiotics Vancomycin and Zosyn, C. diff PCR noted to be negative. Keep right heel offloaded. No weightbearing right foot. Keep right foot protected using CAM boot when patient is up and in transit. Also given chronic ulceration to right heel noninvasive lower extremity arterial studies were ordered. No evidence of acute ischemia at this time. Podiatry will continue to follow.
[2024-12-25] MEDS: Lisinopril 5 MG Tablet PO (09:30)
[2024-12-25] MEDS: Aspirin 81 MG TAB.CHEW PO (09:31)
[2024-12-25 09:37] VITALS: BP 120/56; PULSE 83; RESP 16; TEMP 36.4; O2SAT 94
--- NOTE | 2024-12-25 10:11 | PN_ITS ---
Subjective Subjective Patient seen and examined. She started having diarrhea yesterday and said she had some episodes of diarrhea today also. Review of systems is otherwise negative. Objective Data Objective Data Vital Signs: Vital Signs Temp Pulse Resp BP Pulse Ox O2 Del Method 97.6 F L 83 16 120/56 L 94 Room Air 12/25/24 09:37 12/25/24 09:37 12/25/24 09:37 12/25/24 09:37 12/25/24 09:37 12/25/24 09:37 Oxygen Delivery Method Room Air Weight: 144 lb 12.8 oz Body Mass Index (BMI) 26.4 Intake & Output: Intake and Output for Last 24 Hours 12/23/24 12/24/24 12/25/24 23:59 23:59 23:59 Intake Total 300 / 300 2180 / 2430 1025 / 1025 Output Total 150 / 150 Balance 300 / 300 2030 / 2280 1025 / 1025 Lab / Micro Data 12/25/24 06:53 12/25/24 06:53 Labs: Laboratory Results - last 24 hr 12/24/24 11:28: POC Glucose 103 12/24/24 16:17: POC Glucose 108 H 12/25/24 04:20: Vancomycin Trough 10.7 12/25/24 06:33: POC Glucose 104 12/25/24 06:53: WBC 8.4, RBC 4.13 L, Hgb 11.5 L, Hct 35.6 L, MCV 86.2, MCH 27.8, MCHC 32.3, RDW Std Deviation 44.1 H, RDW Coeff of Be 14.1, Plt Count 266, MPV 9.0, Immature Gran % (Auto) 0.500, Neut % (Auto) 73.0 H, Lymph % (Auto) 15.2 L, [place] % (Auto) 7.1, Eos % (Auto) 3.2, Baso % (Auto) 1.0, Absolute Neuts (auto) 6.1, Absolute Lymphs (auto) 1.28, Nucleated RBC % 0, Sodium 141, Potassium 3.8, Chloride 110 H, Carbon Dioxide 20.4 L, Anion Gap 10, BUN 13, Creatinine 0.81, Estim Creat Clear Calc 52.55, Est GFR (MDRD) Non-Af 76, BUN/Creatinine Ratio 16.5, Glucose 103 H, Calcium 8.7 Micro: Microbiology 12/23/24 16:50 Wound - Right Foot Gram Stain - Final 12/23/24 16:50 Wound - Right Foot Wound Culture - Preliminary GNR Poss Pseudomonas sp Staphylococcus species Gram positive yareli 12/23/24 16:50 Wound - Right Foot Skin and Soft Tissue MRSA/MSSA (PCR - Final 12/24/24 18:25 Stool Clostridioides difficile (PCR) - Final Radiography Diagnostic Testing: Radiology Impression Lower Extremity MRI 12/24/24 09:30 IMPRESSION: 1. Soft tissue ulcer underlying the posterior aspect of the calcaneum. 2. Underlying soft tissue edema and swelling suggestive of cellulitis without drainable abscess formation. 3. Underlying bone marrow edema of the posterior aspect of the calcaneus suggestive of osteomyelitis without associated drainable intraosseous abscess formation. 4. Small calcaneal spur formation. 5. Enthesophyte formation at the calcaneal insertion of Achilles tendon. 6. Mild tibiotalar, subtalar joint effusions. 7. Mild effusion in the sinus tarsus. 8. Edema of the subtalar ligaments. 9. Degenerative fibrocystic changes surrounding the sinus tarsus. 10. Multifocal patchy bone marrow edema surrounding the tarsal and tarsometatarsal joints, probably secondary to osteopenia. 11. Degenerative joint disease of the tibiotalar, subtalar, tarsal and tarsometatarsal joints. Reading Location: [place] [address] Social Homelessness:: Sheltered Physical Exam Const alert, oriented x3, no apparent distress and well nourished General Appearance: cooperative and well developed HEENT normocephalic, head/scalp atraumatic, moist oral mucous membranes, oropharynx normal and gingiva normal Eyes PERRL and EOMs intact bilaterally Neck no lymphadenopathy and supple Lymph Lymphatic: no lymphadenopathy noted and no lymphedema noted Resp normal respiratory effort, normal air movement and clear to auscultation bilaterally Cardio regular rate, regular rhythm, S1 normal heart sound, S2 normal heart sound and no murmurs GI normal to inspection, nondistended, normoactive bowel sounds, soft to palpation, non-tender and non-distended Extremity Extremity Narrative: RLE wrapped in bandage Skin Skin Narrative: as under extremities Neuro CN's II-XII intact bilaterally, no focal motor deficits and no sensory deficits noted Motor Exam: strength 5/5 throughout and general weakness Psych thought process normal, cooperative and affect normal Appearance: appropriate Assessment & Plan Assessment/Plan (1) Cellulitis of right lower limb: (2) 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 Right lower extremity wrapped in bandage. On IV Zosyn. Wound cultures pending. * Also on IV vancomycin. * PT OT on board. Fall precautions. * Per podiatry to keep right heel offloaded and no weightbearing on the right foot. * Right foot MRI pending. * Wound cultures so far growing gram-negative rods possibly Pseudomonas species, staph species and gram positive yareli. #Type 2 diabetes mellitus with peripheral neuropathy: * On insulin sliding scale. Accuhecks ACHS. * A1C is 5.7 #Diarrhea * patient developed diarrhea yesterday. Says she had some episodes today also * stool for enteric pathogen pending; C diff negative. * will give loperamide * #Hypertension * On lisinopril. #Hypokalemia: Replace and trend DVT prophylaxis: SCDs. Will add on Lovenox. Disposition: Patient is currently homeless. Case management on board to help facilitate discharge. Charges/Coding Visit Charges Inpatient E&M: 58132 Subs Hosp L2
--- NOTE | 2024-12-25 12:00 | NURSING ---
Enteric Panel is negative per Estefani in Micro. will give imodium and take out of isolation.
[2024-12-25] MEDS: Loperamide 2 MG Capsule PO ×2 (12:10→19:30)
[2024-12-25 12:44] LABS: Bedside Glucose 96 mg/dL (74-106)
[2024-12-25 15:00] VITALS: BP 146/69; PULSE 80; RESP 19; TEMP 37; O2SAT 96
--- NOTE | 2024-12-25 15:11 | NURSING ---
Pt is sitting in chair. Has Boot on. Pt denies further needs. Call light in reach.
[2024-12-25 17:57] LABS: Bedside Glucose 95 mg/dL (74-106)
[2024-12-25] MEDS: Atorvastatin Calcium 40 MG Tablet PO (19:31)
[2024-12-25 20:39] VITALS: BP 158/82; PULSE 78; RESP 16; TEMP 36.3; O2SAT 97
[2024-12-25 23:27] LABS: Bedside Glucose 104 mg/dL (74-106)
[2024-12-26] MEDS: Vancomycin HCl 1,250 MG in 0.9% Normal Saline (250mL Bag) 250 ML 167 MG IV (05:17)
[2024-12-26] MEDS: Menthol/Lanolin/Calamine/Znox 113 GM Tube 1 APPLIC TOPICAL ×3 (05:17→22:46)
[2024-12-26] MEDS: Piperacil/Tazobactam 3.375 GM in 0.9% Normal Saline (50mL MB+) 50 ML IV ×3 (05:19→22:46)
[2024-12-26 05:26] VITALS: BP 156/82; PULSE 73; RESP 16; TEMP 36.6; O2SAT 94
[2024-12-26 05:45] LABS: Absolute Lymphocyte Count 1.58 X10^3/uL (0.83-4.51); Absolute Neutrophil Count 4.6 X10^3/uL (2.0-7.7); Basophil# 0.07 X10^3/uL; Eosinophil# 0.36 X10^3/uL; Hematocrit 37.5 % (37-47); Lymphocyte # 1.58 X10^3/ul (0.83-4.51); Lymphocyte % 21.9 % (19-41); Mean Corpuscular Hgb 27.7 pg (27.0-32.0); Mean Corpuscular Volume 86.6 fL (81-99); Mean Platelet Vol. 9.3 fl (6.2-12.0); Monocyte# 0.56 X10^3/uL; Monocyte% 7.8 % (0-10); NRBC Flagged by Analyzer 0 % (0-5); Neutrophil # 4.61 X10^3/uL (2.7-7.7); Neutrophil % 63.9 % (47-70); Platelet Count 294 K/mm3 (150-450); RBC Distribution Width CV 14.1 % (11.6-14.6); Red Blood Count 4.33 M/mm3 (4.2-5.4); White Blood Count 7.2 K/mm3 (4.4-11.0)
[2024-12-26 06:08] LABS: Anion Gap 12 (5-15); BUN 16 mg/dL (4-19); BUN/Creat Ratio 19.3 RATIO (10-20); Carbon Dioxide 19.3 mmol/L (21.0-32.0); Chloride 109 mmol/L (98-108); Creatinine, Serum 0.84 mg/dL (0.70-1.20); EST Glomerular Filtration Rate 72 (>60); Estimated Creatinine Clearance 50.67 ml/min (50-250); Glucose 94 mg/dL (70-99); Potassium 3.8 mmol/L (3.3-5.1); Sodium Level 140 mmol/L (133-145)
[2024-12-26 06:09] LABS: Bedside Glucose 108 mg/dL (74-106)
[2024-12-26 07:52] VITALS: BP 168/68; PULSE 78; RESP 18; TEMP 36.6; O2SAT 94
[2024-12-26] MEDS: Loperamide 2 MG Capsule PO (07:56)
[2024-12-26] MEDS: Aspirin 81 MG TAB.CHEW PO (07:56)
[2024-12-26] MEDS: Acetaminophen 325 MG Tablet 650 MG PO (07:56)
[2024-12-26] MEDS: Lisinopril 5 MG Tablet PO (07:56)
--- NOTE | 2024-12-26 09:41 | PCM.PROGNOTE ---
Subjective Subjective Patient was seen this morning for follow up on right heel. She is resting in bed sitting up watching TV. She relates to minimal diarrhea today. She relates overall she is feeling good and feels like wound is healing. No f/c/n/v. Objective Data Objective Data Vital Signs: Vital Signs Temp Pulse Resp BP Pulse Ox O2 Del Method 97.8 F 78 18 168/68 H 94 Room Air 12/26/24 07:52 12/26/24 07:52 12/26/24 07:52 12/26/24 07:52 12/26/24 07:52 12/26/24 07:52 Oxygen Delivery Method Room Air Weight: 65.68 kg Body Mass Index (BMI) 26.4 Intake & Output: Intake and Output for Last 24 Hours 12/24/24 12/25/24 12/26/24 23:59 23:59 23:59 Intake Total 2180 / 2430 2130 / 2730 1275 / 1275 Output Total 150 / 150 Balance 2030 / 2280 2130 / 2730 1275 / 1275 Lab / Micro Data 12/26/24 05:00 12/26/24 05:00 Labs: Laboratory Results - last 24 hr 12/25/24 12:06: POC Glucose 96 12/25/24 16:36: POC Glucose 95 12/25/24 21:09: POC Glucose 104 12/26/24 05:00: WBC 7.2, RBC 4.33, Hgb 12.0, Hct 37.5, MCV 86.6, MCH 27.7, MCHC 32.0, RDW Std Deviation 45.0 H, RDW Coeff of Be 14.1, Plt Count 294, MPV 9.3, Immature Gran % (Auto) 0.400, Neut % (Auto) 63.9, Lymph % (Auto) 21.9, [place] % (Auto) 7.8, Eos % (Auto) 5.0, Baso % (Auto) 1.0, Absolute Neuts (auto) 4.6, Absolute Lymphs (auto) 1.58, Nucleated RBC % 0, Sodium 140, Potassium 3.8, Chloride 109 H, Carbon Dioxide 19.3 L, Anion Gap 12, BUN 16, Creatinine 0.84, Estim Creat Clear Calc 50.67, Est GFR (MDRD) Non-Af 72, BUN/Creatinine Ratio 19.3, Glucose 94, Calcium 9.0 12/26/24 05:21: POC Glucose 108 H Micro: Microbiology 12/23/24 16:50 Wound - Right Foot Gram Stain - Final 12/23/24 16:50 Wound - Right Foot Wound Culture - Preliminary Pseudomonas aeruginosa Staphylococcus species Gram positive yareli 12/23/24 16:50 Wound - Right Foot Skin and Soft Tissue MRSA/MSSA (PCR - Final 12/24/24 18:25 Stool Enteric Bacteriology - Final 12/24/24 18:25 Stool Clostridioides difficile (PCR) - Final Social Homelessness:: Sheltered Physical Exam Const alert, oriented x3 and no apparent distress Constitutional Narrative: Round plantar right heel ulceration down to subcutaneous tissue with healthy viable granular base and viable margins, there is no probe to bone, no erythema to foot, anlke or and leg, minimal edema present, no fluctuance, no visible abscess, no crepitus, no blistering present, wound is showing evidence of epithelialization. No other open lesions right foot or ankle. CFT < 2 seconds to all toes, right foot with pedal pulses intact and no evidence of ischemia to foot or ankle. Sensation is decreased consistent with chronic peripheral neuropathy, no evidence of charcot neuroarthropathy, no POP or pain on ROM to foot or ankle right foot. No evidence of DVT. 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 Reviewed diagnostic data. MRI right foot: there is noted bone marrow edema to the posterior plantar calcaneus consistent with osteomyelitis. Right foot and wound is healing and improving. Bedside wound debridement completed on 12/23/2024. No plans for OR at this time. A culture has been obtained and reviewed - pseudomonas sp, staph, and gram positive yareli, patient is on IV antibiotics Vancomycin and Zosyn, C. diff PCR noted to be negative. Keep right heel offloaded. No weightbearing right foot. Keep right foot protected using CAM boot when patient is up and in transit. Also given chronic ulceration to right heel noninvasive lower extremity arterial studies were ordered. No evidence of acute ischemia at this time. Podiatry will continue to follow.
--- NOTE | 2024-12-26 09:42 | PCM.PROGNOTE ---
Subjective Subjective Patient seen and examined. She had no active complaints. The pain in the left foot is much better. Review of systems is otherwise negative. BP is elevated this morning at 168/68. Objective Data Objective Data Vital Signs: Vital Signs Temp Pulse Resp BP Pulse Ox O2 Del Method 97.8 F 78 18 168/68 H 94 Room Air 12/26/24 07:52 12/26/24 07:52 12/26/24 07:52 12/26/24 07:52 12/26/24 07:52 12/26/24 07:52 Oxygen Delivery Method Room Air Weight: 144 lb 12.8 oz Body Mass Index (BMI) 26.4 Intake & Output: Intake and Output for Last 24 Hours 12/24/24 12/25/24 12/26/24 23:59 23:59 23:59 Intake Total 2180 / 2430 2130 / 2730 1275 / 1275 Output Total 150 / 150 Balance 2029 / 2280 2130 / 2730 1275 / 1275 Lab / Micro Data 12/26/24 05:00 12/26/24 05:00 Labs: Laboratory Results - last 24 hr 12/25/24 12:06: POC Glucose 96 12/25/24 16:36: POC Glucose 95 12/25/24 21:09: POC Glucose 104 12/26/24 05:00: WBC 7.2, RBC 4.33, Hgb 12.0, Hct 37.5, MCV 86.6, MCH 27.7, MCHC 32.0, RDW Std Deviation 45.0 H, RDW Coeff of Be 14.1, Plt Count 294, MPV 9.3, Immature Gran % (Auto) 0.400, Neut % (Auto) 63.9, Lymph % (Auto) 21.9, [place] % (Auto) 7.8, Eos % (Auto) 5.0, Baso % (Auto) 1.0, Absolute Neuts (auto) 4.6, Absolute Lymphs (auto) 1.58, Nucleated RBC % 0, Sodium 140, Potassium 3.8, Chloride 109 H, Carbon Dioxide 19.3 L, Anion Gap 12, BUN 16, Creatinine 0.84, Estim Creat Clear Calc 50.67, Est GFR (MDRD) Non-Af 72, BUN/Creatinine Ratio 19.3, Glucose 94, Calcium 9.0 12/26/24 05:21: POC Glucose 108 H Micro: Microbiology 12/23/24 16:50 Wound - Right Foot Gram Stain - Final 12/23/24 16:50 Wound - Right Foot Wound Culture - Preliminary Pseudomonas aeruginosa Staphylococcus species Gram positive yareli 12/23/24 16:50 Wound - Right Foot Skin and Soft Tissue MRSA/MSSA (PCR - Final 12/24/24 18:25 Stool Enteric Bacteriology - Final 12/24/24 18:25 Stool Clostridioides difficile (PCR) - Final Social Homelessness:: Sheltered Physical Exam Const alert, oriented x3, no apparent distress and well nourished General Appearance: cooperative and well developed HEENT normocephalic, head/scalp atraumatic, moist oral mucous membranes, oropharynx normal and gingiva normal Eyes PERRL and EOMs intact bilaterally Neck no lymphadenopathy and supple Lymph Lymphatic: no lymphadenopathy noted and no lymphedema noted Resp normal respiratory effort, normal air movement and clear to auscultation bilaterally Cardio regular rate, regular rhythm, S1 normal heart sound, S2 normal heart sound and no murmurs GI normal to inspection, nondistended, normoactive bowel sounds, soft to palpation, non-tender and non-distended Extremity Extremity Narrative: RLE wrapped in bandage General Extremity: no tenderness to palpation of joints or extremities Skin Skin Narrative: as under extremities Neuro CN's II-XII intact bilaterally, no focal motor deficits and no sensory deficits noted Motor Exam: strength 5/5 throughout and general weakness Psych thought process normal, cooperative and affect normal Appearance: appropriate Assessment & Plan Assessment/Plan (1) Cellulitis of right lower limb: (2) Non-pressure chronic ulcer of right heel and midfoot with fat layer exposed: PLAN: Plan #Acute on chronic diabetic foot ulcer S/p bedside debridement by podiatry. Right lower extremity wrapped in bandage. On IV Zosyn. Wound cultures pending. Also on IV vancomycin. PT OT on board. Fall precautions. Per podiatry to keep right heel offloaded and no weightbearing on the right foot. Right foot MRI showed soft tissue ulcer underlying the posterior aspect of the calaneum and underlying soft tissue edema and swelling suggestive of cellulitis without drainable abscess, underlying bone marrow edema of hte posterior aspect of the calcaneus sugggestive of osteomyelitis. Wound cultures so far growing gram-negative rods possibly Pseudomonas species, staph species and gram positive yareli. management as per podiatry consult ID to help with duration of antibiotics #Type 2 diabetes mellitus with peripheral neuropathy: On insulin sliding scale. Accuhecks ACHS. A1C is 5.7 #Diarrhea patient developed diarrhea yesterday. Says she had some episodes today also stool for enteric pathogen pending; C diff negative. will give loperamide #Hypertension On lisinopril. #Hypokalemia: Replace and trend DVT prophylaxis: SCDs. On lovenox Disposition: Patient is currently homeless. Case management on board to help facilitate discharge. Charges/Coding Visit Charges Inpatient E&M: 53378 Subs Hosp L2
[2024-12-26] MEDS: Enoxaparin 40 MG/0.4 ML Syringe SC (10:27)
[2024-12-26 12:00] LABS: Bedside Glucose 98 mg/dL (74-106)
[2024-12-26] MEDS: 0.9% Normal Saline (250mL Bag) 250 ML 15 ML IV (13:27)
[2024-12-26 14:05] VITALS: BP 148/50; PULSE 70; RESP 18; TEMP 36.4; O2SAT 95
[2024-12-26 16:53] LABS: Bedside Glucose 108 mg/dL (74-106)
[2024-12-26 17:49] LABS: Vancomycin, Trough Level 21.6 ug/mL (5.0-15.0)
--- NOTE | 2024-12-26 17:57 | PCM.RX.CS ---
Consult Antibiotic Management Pharmacy has been consulted to manage selected antibiotic: Vancomycin Type of Intervention Type of Consult: Follow-up Labs Labs: Sodium 140 mmol/L (133-145) 12/26/24 05:00 Potassium 3.8 mmol/L (3.3-5.1) 12/26/24 05:00 Chloride 109 mmol/L (98-108) H 12/26/24 05:00 Carbon Dioxide 19.3 mmol/L (21.0-32.0) L 12/26/24 05:00 Anion Gap 12 (5-15) 12/26/24 05:00 BUN 16 mg/dL (4-19) 12/26/24 05:00 Creatinine 0.84 mg/dL (0.70-1.20) 12/26/24 05:00 Est GFR (MDRD) Non-Af 72 (>60) 12/26/24 05:00 BUN/Creatinine Ratio 19.3 RATIO (10-20) 12/26/24 05:00 Glucose 94 mg/dL (70-99) 12/26/24 05:00 Vancomycin Trough 21.6 ug/mL (5.0-15.0) H 12/26/24 16:58 Microbiology Microbiology: Microbiology 12/23/24 16:50 Wound - Right Foot Gram Stain - Final 12/23/24 16:50 Wound - Right Foot Wound Culture - Final Pseudomonas aeruginosa Coag Negative Staph Gram positive yareli 12/23/24 16:50 Wound - Right Foot Skin and Soft Tissue MRSA/MSSA (PCR - Final 12/24/24 18:25 Stool Enteric Bacteriology - Final 12/24/24 18:25 Stool Clostridioides difficile (PCR) - Final Goal Trough Goal Trough: 15-20 mcg/mL Pharmacy Plan for Drug Dosing Pharmacy Plan for Drug Dosing: VANCOMYCIN LEVEL RECEIVED Current Vancomycin Dose: 1250mg IV Q12h Number of Doses Received: 3 (of current regimen) Vancomycin Level: 21.6 Hours Since Last Dose: 11.5hr Renal Function: 0.84 Renal Function Trend: stable Lab/Micro: WCx growing multiple organisms, not finalized yet Vancomycin Plan/Comments: Patient had a trough drawn which resulted in a value of 21.6 (goal 15-20). patient's trough is above therapeutic goal. Will discontinue vancomycin and recheck a trough in ~12hrs. Will resume vancomycin once trough is less than 20 per protocol. Pending Level: *RANDOM* 12/27/24 w/ AM labs Pharmacy Service will continue to monitor and adjust dosing as required.
[2024-12-26 22:32] VITALS: BP 146/63; PULSE 80; RESP 16; TEMP 37.2; O2SAT 97
[2024-12-26] MEDS: Atorvastatin Calcium 40 MG Tablet PO (22:45)
[2024-12-27 04:39] VITALS: BP 150/70; PULSE 73; RESP 16; TEMP 36.9; O2SAT 95
[2024-12-27] MEDS: Loperamide 2 MG Capsule PO ×3 (05:01→20:56)
[2024-12-27 05:57] LABS: Absolute Neutrophil Count 4.2 X10^3/uL (2.0-7.7); Basophil# 0.08 X10^3/uL; Basophil% 1.1 % (0-1); Eosinophil# 0.37 X10^3/uL; Eosinophils% 5.3 % (0-5); Hematocrit 37.4 % (37-47); Hemoglobin 12.1 g/dL (12.0-15.0); Lymphocyte % 25.6 % (19-41); Mean Corp Hgb Conc 32.4 g/dL (32-36); Mean Corpuscular Hgb 28.1 pg (27.0-32.0); Mean Corpuscular Volume 86.8 fL (81-99); Mean Platelet Vol. 9.2 fl (6.2-12.0); Monocyte# 0.53 X10^3/uL; Monocyte% 7.5 % (0-10); NRBC Flagged by Analyzer 0 % (0-5); Neutrophil # 4.21 X10^3/uL (2.7-7.7); Neutrophil % 59.9 % (47-70); Platelet Count 338 K/mm3 (150-450); RBC Distribution Width CV 14.1 % (11.6-14.6); RBC Distribution Width SD 44.6 fl (35.1-43.9); Red Blood Count 4.31 M/mm3 (4.2-5.4)
[2024-12-27 06:53] LABS: Anion Gap 12 (5-15); BUN 13 mg/dL (4-19); BUN/Creat Ratio 17.8 RATIO (10-20); Calcium,Total 9.1 mg/dL (7.6-11.0); Carbon Dioxide 19.9 mmol/L (21.0-32.0); Chloride 108 mmol/L (98-108); Creatinine, Serum 0.74 mg/dL (0.70-1.20); EST Glomerular Filtration Rate 84 (>60); Glucose 99 mg/dL (70-99); Potassium 3.9 mmol/L (3.3-5.1); Sodium Level 140 mmol/L (133-145)
[2024-12-27] MEDS: Piperacil/Tazobactam 3.375 GM in 0.9% Normal Saline (50mL MB+) 50 ML IV ×3 (06:55→22:14)
[2024-12-27] MEDS: Menthol/Lanolin/Calamine/Znox 113 GM Tube 1 APPLIC TOPICAL ×3 (06:55→20:51)
--- NOTE | 2024-12-27 07:01 | PCM.RX.CS ---
Consult Antibiotic Management Pharmacy has been consulted to manage selected antibiotic: Vancomycin Type of Intervention Type of Consult: Follow-up Suspected Infection Suspected Infection: Skin/Soft tissue Prior Doses of Antibiotics Prior Doses of Antibiotics Received/Current Regimen: Vancomycin 1250 mg Q12H last given 12/26 @ 0517 Labs Labs: Sodium 140 mmol/L (133-145) 12/27/24 05:11 Potassium 3.9 mmol/L (3.3-5.1) 12/27/24 05:11 Chloride 108 mmol/L (98-108) 12/27/24 05:11 Carbon Dioxide 19.9 mmol/L (21.0-32.0) L 12/27/24 05:11 Anion Gap 12 (5-15) 12/27/24 05:11 BUN 13 mg/dL (4-19) 12/27/24 05:11 Creatinine 0.74 mg/dL (0.70-1.20) 12/27/24 05:11 Est GFR (MDRD) Non-Af 84 (>60) 12/27/24 05:11 BUN/Creatinine Ratio 17.8 RATIO (10-20) 12/27/24 05:11 Glucose 99 mg/dL (70-99) 12/27/24 05:11 Vancomycin Trough 21.6 ug/mL (5.0-15.0) H 12/26/24 16:58 Random Vancomycin 14.0 ug/mL (0.0-15.0) 12/27/24 05:11 Microbiology Microbiology: Microbiology 12/23/24 16:50 Wound - Right Foot Gram Stain - Final 12/23/24 16:50 Wound - Right Foot Wound Culture - Final Pseudomonas aeruginosa Coag Negative Staph Gram positive yareli 12/23/24 16:50 Wound - Right Foot Skin and Soft Tissue MRSA/MSSA (PCR - Final 12/24/24 18:25 Stool Enteric Bacteriology - Final 12/24/24 18:25 Stool Clostridioides difficile (PCR) - Final Dosing Weight Weight used for dosin kg Estimated Creatinine Clearance Estimated Creatinine Clearance: ~ 53 Goal Trough Goal Trough: 15-20 mcg/mL Pharmacy Plan for Drug Dosing Pharmacy Plan for Drug Dosing: Vancomycin random level = 14.0, resume dosing with 1000 mg Q12H Pharmacy Service will continue to monitor and adjust dosing as required. Follow-Up Labs Follow-Up Labs: Trough: Vancomycin Date/Time Labs Ordered Labs to be done on [date and time ordered]: 12/28/24 @ 8903
[2024-12-27 07:57] LABS: Bedside Glucose 98 mg/dL (74-106)
[2024-12-27 08:58] VITALS: BP 144/74; PULSE 81; RESP 16; TEMP 36.4; O2SAT 98
[2024-12-27] MEDS: Aspirin 81 MG TAB.CHEW PO (09:08)
[2024-12-27] MEDS: Glucerna Shake 120 ML LIQUID PO ×3 (09:08→18:08)
[2024-12-27] MEDS: Lisinopril 5 MG Tablet PO (09:08)
[2024-12-27] MEDS: Enoxaparin 40 MG/0.4 ML Syringe SC (09:08)
[2024-12-27] MEDS: Vancomycin IV 1,000 MG/200 ML BAG 200 MG IV ×2 (09:09→18:09)
[2024-12-27] MEDS: 0.9% Saline Lock 10 ML Syringe IV (09:11)
--- NOTE | 2024-12-27 09:38 | WOUNDNOTE ---
wound photo: right heel
--- NOTE | 2024-12-27 10:07 | PCM.CONS.GEN ---
Assessment & Plan Assessment/Plan (1) Diabetes mellitus with diabetic polyneuropathy: (2) Foot osteomyelitis, right: PLAN: Dr. Ware following. MRI showed osteo in heel. Wound cx so far with PsA, CoNS, and GPR. Cont vanc/zosyn. Will follow, thank you HPI Consult Data Date of Consult: 12/27/24 HPI Narrative Reason for Consultation: DM foot infection HPI Narrative: YAMILET RICHARDSON, is a 74 F with h/o DM now off meds after losing weight, presented 12/23 with several weeks worsening R heel wound. C/o progressive pain, redness, drainage. No fever or chills. Admitted here, now on vanc/zosyn, feeling better. Full ROS performed and neg except as noted above. [facility] Medical History Bipolar disorder Anxiety Chronic pain Non-smoker Asthma Hypertension Home Medications ?Medication ?Instructions ?Recorded ?Last Taken ?Type Ranitidine [Zantac] 300 mg PO DAILY 09/27/15 Unknown History Verapamil Hcl [Verapamil Er] 180 mg PO DAILY 09/27/15 Unknown History albuterol sulfate 90 mcg/actuation 2 puff inhalation Q6H PRN PRN 09/27/15 Unknown History aerosol inhaler (ProAir HFA) Shortness Of Breath aspirin 81 mg tablet,delayed 81 mg PO DAILY@0800 09/27/15 Unknown History release atorvastatin 40 mg tablet 40 mg PO QHS 09/27/15 Unknown History baclofen 10 mg tablet 10 mg PO TID 09/27/15 Unknown History enalapril maleate 20 mg tablet 20 mg PO BID 09/27/15 Unknown History (Vasotec) etodolac 500 mg tablet 500 mg PO BID 09/27/15 Unknown History fluticasone propionate 50 1 spray DAILY 09/27/15 Unknown History mcg/actuation nasal spray,suspension hydrochlorothiazide 25 mg tablet 25 mg PO DAILY 09/27/15 Unknown History loratadine 10 mg tablet (Allergy 10 mg PO DAILY 09/27/15 Unknown History Relief (loratadine)) metformin 500 mg tablet 500 mg PO BIDCM 09/27/15 Unknown History multivitamin with folic acid 400 1 tab PO DAILY 09/27/15 Unknown History mcg tablet (Thera) trazodone 50 mg tablet 50 mg PO QHS 09/27/15 Unknown History Ibuprofen [Motrin] 800 mg PO TID PRN PRN Fever #20 08/22/16 Unknown Rx tabs benzonatate 100 mg capsule 100 mg PO TID PRN PRN Cough ##20 08/22/16 Unknown Rx oseltamivir 75 mg capsule 75 mg PO BID ##10 08/22/16 Unknown Rx acetaminophen 500 mg tablet 1,000 - 1,500 mg PO Q6H PRN fever 12/23/24 12/23/24 History (Tylenol Extra Strength) or pain Allergy/AdvReac Type Severity Reaction Status Date / Time No Known Allergies Allergy Verified 12/23/24 13:24 Social History (Updated 12/23/24 @ 14:02 by Krystal Gambino) housing: house Smoking Status: Never smoker Homelessness:: Sheltered Physical Exam Const alert, oriented x3 and no apparent distress General Appearance: cooperative HEENT normocephalic and head/scalp atraumatic Eyes PERRL and EOMs intact bilaterally Neck supple and No nodes Resp normal air movement and clear to auscultation bilaterally Cardio regular rate and regular rhythm GI soft to palpation, non-tender and non-distended Extremity General Extremity: Negative for edema Skin Skin Narrative: R heel wound Neuro CN's II-XII intact bilaterally Lab / Micro Data Attestation: I reviewed the patient's lab results. 12/27/24 05:11 12/27/24 05:11 Labs: Laboratory Results - last 24 hr 12/26/24 11:34: POC Glucose 98 12/26/24 16:30: POC Glucose 108 H 12/26/24 16:58: Vancomycin Trough 21.6 H 12/27/24 05:11: WBC 7.0, RBC 4.31, Hgb 12.1, Hct 37.4, MCV 86.8, MCH 28.1, MCHC 32.4, RDW Std Deviation 44.6 H, RDW Coeff of Be 14.1, Plt Count 338, MPV 9.2, Immature Gran % (Auto) 0.600, Neut % (Auto) 59.9, Lymph % (Auto) 25.6, [place] % (Auto) 7.5, Eos % (Auto) 5.3 H, Baso % (Auto) 1.1 H, Absolute Neuts (auto) 4.2, Absolute Lymphs (auto) 1.80, Nucleated RBC % 0, Sodium 140, Potassium 3.9, Chloride 108, Carbon Dioxide 19.9 L, Anion Gap 12, BUN 13, Creatinine 0.74, Estim Creat Clear Calc 53.20, Est GFR (MDRD) Non-Af 84, BUN/Creatinine Ratio 17.8, Glucose 99, Calcium 9.1, Random Vancomycin 14.0 12/27/24 06:57: POC Glucose 98 Micro: Microbiology 12/23/24 16:50 Wound - Right Foot Gram Stain - Final 12/23/24 16:50 Wound - Right Foot Wound Culture - Final Pseudomonas aeruginosa Coag Negative Staph Gram positive yareli 12/23/24 16:50 Wound - Right Foot Skin and Soft Tissue MRSA/MSSA (PCR - Final
--- NOTE | 2024-12-27 10:59 | PN_ITS ---
Subjective Subjective Patient seen and examined. She had no active complaints. She had an uneventful night. Review of systems of systems is otherwise negative. Objective Data Objective Data Vital Signs: Vital Signs Temp Pulse Resp BP Pulse Ox O2 Del Method 97.6 F L 81 16 144/74 H 98 Room Air 12/27/24 08:58 12/27/24 08:58 12/27/24 08:58 12/27/24 08:58 12/27/24 08:58 12/27/24 08:58 Oxygen Delivery Method Room Air Weight: 144 lb 12.8 oz Body Mass Index (BMI) 26.4 Intake & Output: Intake and Output for Last 24 Hours 12/25/24 12/26/24 12/27/24 23:59 23:59 23:59 Intake Total 2130 / 2730 1325 / 1325 500 / 500 Balance 2130 / 2730 1325 / 1325 500 / 500 Lab / Micro Data 12/27/24 05:11 12/27/24 05:11 Labs: Laboratory Results - last 24 hr 12/26/24 11:34: POC Glucose 98 12/26/24 16:30: POC Glucose 108 H 12/26/24 16:58: Vancomycin Trough 21.6 H 12/27/24 05:11: WBC 7.0, RBC 4.31, Hgb 12.1, Hct 37.4, MCV 86.8, MCH 28.1, MCHC 32.4, RDW Std Deviation 44.6 H, RDW Coeff of Be 14.1, Plt Count 338, MPV 9.2, Immature Gran % (Auto) 0.600, Neut % (Auto) 59.9, Lymph % (Auto) 25.6, [place] % (Auto) 7.5, Eos % (Auto) 5.3 H, Baso % (Auto) 1.1 H, Absolute Neuts (auto) 4.2, Absolute Lymphs (auto) 1.80, Nucleated RBC % 0, Sodium 140, Potassium 3.9, Chloride 108, Carbon Dioxide 19.9 L, Anion Gap 12, BUN 13, Creatinine 0.74, Estim Creat Clear Calc 53.20, Est GFR (MDRD) Non-Af 84, BUN/Creatinine Ratio 17.8, Glucose 99, Calcium 9.1, Random Vancomycin 14.0 12/27/24 06:57: POC Glucose 98 Micro: Microbiology 12/23/24 16:50 Wound - Right Foot Gram Stain - Final 12/23/24 16:50 Wound - Right Foot Wound Culture - Final Pseudomonas aeruginosa Coag Negative Staph Gram positive yareli 12/23/24 16:50 Wound - Right Foot Skin and Soft Tissue MRSA/MSSA (PCR - Final 12/24/24 18:25 Stool Enteric Bacteriology - Final 12/24/24 18:25 Stool Clostridioides difficile (PCR) - Final Social Homelessness:: Sheltered Physical Exam Const alert, oriented x3, no apparent distress and well nourished General Appearance: cooperative and well developed HEENT normocephalic, head/scalp atraumatic, moist oral mucous membranes, oropharynx normal and gingiva normal Eyes PERRL and EOMs intact bilaterally Neck no lymphadenopathy and supple Lymph Lymphatic: no lymphadenopathy noted and no lymphedema noted Resp normal respiratory effort, normal air movement and clear to auscultation bilaterally Cardio regular rate, regular rhythm, S1 normal heart sound, S2 normal heart sound and no murmurs GI normal to inspection, nondistended, normoactive bowel sounds, soft to palpation, non-tender and non-distended Extremity Extremity Narrative: RLE wrapped in bandage General Extremity: no tenderness to palpation of joints or extremities Skin Skin Narrative: as under extremities Neuro CN's II-XII intact bilaterally, no focal motor deficits and no sensory deficits noted Motor Exam: strength 5/5 throughout and general weakness Psych thought process normal, cooperative and affect normal Appearance: appropriate Assessment & Plan Assessment/Plan (1) Cellulitis of right lower limb: (2) 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 Right lower extremity wrapped in bandage. On IV Zosyn. Wound cultures pending. * Also on IV vancomycin. * PT OT on board. Fall precautions. * Per podiatry to keep right heel offloaded and no weightbearing on the right foot. * Right foot MRI showed soft tissue ulcer underlying the posterior aspect of the calaneum and underlying soft tissue edema and swelling suggestive of cellulitis without drainable abscess, underlying bone marrow edema of hte posterior aspect of the calcaneus sugggestive of osteomyelitis. * Wound cultures so far growing gram-negative rods possibly Pseudomonas species, staph species and gram positive yareli. * management as per podiatry * ID consulted. #Type 2 diabetes mellitus with peripheral neuropathy: * On insulin sliding scale. Accuhecks ACHS. * A1C is 5.7 #Diarrhea * patient developed diarrhea yesterday. Says she had some episodes today also * stool for enteric pathogen pending; C diff negative. * will give loperamide * #Hypertension * On lisinopril. #Hypokalemia: resolved. K is 3.9. DVT prophylaxis: SCDs. On lovenox Disposition: Patient is currently homeless. Case management on board to help facilitate discharge. Charges/Coding Visit Charges Inpatient E&M: 95522 Subs Hosp L2
[2024-12-27 12:05] LABS: Bedside Glucose 92 mg/dL (74-106)
[2024-12-27 14:00] VITALS: BP 149/81; PULSE 72; RESP 15; TEMP 36.3; O2SAT 98
--- NOTE | 2024-12-27 15:12 | PCM.PROGNOTE ---
Subjective Subjective Patient was seen today for follow up right heel. She relates she is doing well, no new complaints, no f/c/n/v. Objective Data Objective Data Vital Signs: Vital Signs Temp Pulse Resp BP Pulse Ox O2 Del Method 97.3 F L 72 15 149/81 H 98 Room Air 12/27/24 14:00 12/27/24 14:00 12/27/24 14:00 12/27/24 14:00 12/27/24 14:00 12/27/24 14:00 Oxygen Delivery Method Room Air Weight: 65.68 kg Body Mass Index (BMI) 26.4 Intake & Output: Intake and Output for Last 24 Hours 12/25/24 12/26/24 12/27/24 23:59 23:59 23:59 Intake Total 2130 / 2730 1325 / 1325 550 / 550 Balance 2130 / 2730 1325 / 1325 550 / 550 Lab / Micro Data 12/27/24 05:11 12/27/24 05:11 Labs: Laboratory Results - last 24 hr 12/26/24 16:30: POC Glucose 108 H 12/26/24 16:58: Vancomycin Trough 21.6 H 12/27/24 05:11: WBC 7.0, RBC 4.31, Hgb 12.1, Hct 37.4, MCV 86.8, MCH 28.1, MCHC 32.4, RDW Std Deviation 44.6 H, RDW Coeff of Be 14.1, Plt Count 338, MPV 9.2, Immature Gran % (Auto) 0.600, Neut % (Auto) 59.9, Lymph % (Auto) 25.6, [place] % (Auto) 7.5, Eos % (Auto) 5.3 H, Baso % (Auto) 1.1 H, Absolute Neuts (auto) 4.2, Absolute Lymphs (auto) 1.80, Nucleated RBC % 0, Sodium 140, Potassium 3.9, Chloride 108, Carbon Dioxide 19.9 L, Anion Gap 12, BUN 13, Creatinine 0.74, Estim Creat Clear Calc 53.20, Est GFR (MDRD) Non-Af 84, BUN/Creatinine Ratio 17.8, Glucose 99, Calcium 9.1, Random Vancomycin 14.0 12/27/24 06:57: POC Glucose 98 12/27/24 11:45: POC Glucose 92 Micro: Microbiology 05/23/25 16:50 Wound - Right Foot Gram Stain - Final 12/23/24 16:50 Wound - Right Foot Wound Culture - Final Pseudomonas aeruginosa Coag Negative Staph Gram positive yareli 12/23/24 16:50 Wound - Right Foot Skin and Soft Tissue MRSA/MSSA (PCR - Final 12/24/24 18:25 Stool Enteric Bacteriology - Final 12/24/24 18:25 Stool Clostridioides difficile (PCR) - Final Social Homelessness:: Sheltered Physical Exam Const alert, oriented x3 and no apparent distress Constitutional Narrative: Dressing right foot is clean, dry and intact, reviewed wound photos from today - appears right heel wound is healing appropriately. 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 Reviewed diagnostic data. MRI right foot: there is noted bone marrow edema to the posterior plantar calcaneus consistent with osteomyelitis. Right heel wound is healing and improving. Bedside wound debridement completed on 12/23/2024. No plans for OR at this time. A culture has been obtained and reviewed - pseudomonas sp, staph, and gram positive yareli, patient is on IV antibiotics Vancomycin and Zosyn, C. diff PCR noted to be negative. ID on consult. Keep right heel offloaded. No weightbearing right foot. Keep right foot protected using CAM boot when patient is up and in transit. LEAS reviewed and noted to have good arterial flow to foot bilateral. Podiatry will continue to follow.
[2024-12-27 17:01] LABS: Bedside Glucose 102 mg/dL (74-106)
[2024-12-27 20:00] VITALS: BP 167/88; PULSE 72; RESP 16; TEMP 36.3; O2SAT 98
[2024-12-27] MEDS: Atorvastatin Calcium 40 MG Tablet PO (20:50)
[2024-12-28 02:00] VITALS: BP 145/81; PULSE 74; RESP 16; TEMP 36.6; O2SAT 96
[2024-12-28] MEDS: Vancomycin IV 1,000 MG/200 ML BAG 200 MG IV ×2 (06:03→20:04)
[2024-12-28] MEDS: Piperacil/Tazobactam 3.375 GM in 0.9% Normal Saline (50mL MB+) 50 ML IV ×3 (06:03→21:39)
[2024-12-28 06:41] LABS: Absolute Lymphocyte Count 1.36 X10^3/uL (0.83-4.51); Absolute Neutrophil Count 4.3 X10^3/uL (2.0-7.7); Basophil# 0.06 X10^3/uL; Basophil% 0.9 % (0-1); Eosinophil# 0.46 X10^3/uL; Eosinophils% 6.8 % (0-5); Hematocrit 38.9 % (37-47); Hemoglobin 12.3 g/dL (12.0-15.0); Lymphocyte # 1.36 X10^3/ul (0.83-4.51); Mean Corp Hgb Conc 31.6 g/dL (32-36); Mean Corpuscular Hgb 27.8 pg (27.0-32.0); Mean Corpuscular Volume 87.8 fL (81-99); Mean Platelet Vol. 9.4 fl (6.2-12.0); Monocyte# 0.59 X10^3/uL; Monocyte% 8.7 % (0-10); NRBC Flagged by Analyzer 0 % (0-5); Neutrophil # 4.29 X10^3/uL (2.7-7.7); Neutrophil % 63.2 % (47-70); Platelet Count 367 K/mm3 (150-450); RBC Distribution Width CV 14.1 % (11.6-14.6); Red Blood Count 4.43 M/mm3 (4.2-5.4); White Blood Count 6.8 K/mm3 (4.4-11.0)
[2024-12-28 06:44] LABS: Bedside Glucose 108 mg/dL (74-106)
[2024-12-28 07:08] LABS: Anion Gap 11 (5-15); BUN 21 mg/dL (4-19); BUN/Creat Ratio 24.8 RATIO (10-20); Calcium,Total 9.3 mg/dL (7.6-11.0); Carbon Dioxide 22.1 mmol/L (21.0-32.0); Chloride 105 mmol/L (98-108); Creatinine, Serum 0.83 mg/dL (0.70-1.20); EST Glomerular Filtration Rate 73 (>60); Estimated Creatinine Clearance 51.28 ml/min (50-250); Glucose 95 mg/dL (70-99); Potassium 4.3 mmol/L (3.3-5.1); Sodium Level 139 mmol/L (133-145)
[2024-12-28 08:00] VITALS: PULSE 72
[2024-12-28] MEDS: Glucerna Shake 120 ML LIQUID PO (08:58)
[2024-12-28] MEDS: Lisinopril 5 MG Tablet PO (08:58)
[2024-12-28] MEDS: Aspirin 81 MG TAB.CHEW PO (08:59)
[2024-12-28] MEDS: Enoxaparin 40 MG/0.4 ML Syringe SC (08:59)
[2024-12-28 09:00] VITALS: BP 148/84; PULSE 72; RESP 18; TEMP 36.6; O2SAT 100
[2024-12-28 11:41] LABS: Bedside Glucose 90 mg/dL (74-106)
--- NOTE | 2024-12-28 12:07 | PN_ITS ---
Subjective Subjective Patient seen and examined. She had no complaints. She had an uneventful night.. She has remained hemodynamically stable. Objective Data Objective Data Vital Signs: Vital Signs Temp Pulse Resp BP Pulse Ox O2 Del Method 97.9 F 72 18 148/84 H 100 Room Air 12/28/24 09:00 12/28/24 09:00 12/28/24 09:00 12/28/24 09:00 12/28/24 09:00 12/28/24 09:00 Oxygen Delivery Method Room Air Weight: 144 lb 12.8 oz Body Mass Index (BMI) 26.4 Intake & Output: Intake and Output for Last 24 Hours 12/26/24 12/27/24 12/28/24 23:59 23:59 23:59 Intake Total 1325 / 1325 800 / 800 300 / 300 Balance 1325 / 1325 800 / 800 300 / 300 Lab / Micro Data 12/28/24 05:23 12/28/24 05:23 Labs: Laboratory Results - last 24 hr 12/27/24 16:42: POC Glucose 102 12/28/24 05:23: WBC 6.8, RBC 4.43, Hgb 12.3, Hct 38.9, MCV 87.8, MCH 27.8, MCHC 31.6 L, RDW Std Deviation 45.0 H, RDW Coeff of Be 14.1, Plt Count 367, MPV 9.4, Immature Gran % (Auto) 0.400, Neut % (Auto) 63.2, Lymph % (Auto) 20.0, [place] % (Auto) 8.7, Eos % (Auto) 6.8 H, Baso % (Auto) 0.9, Absolute Neuts (auto) 4.3, Absolute Lymphs (auto) 1.36, Nucleated RBC % 0, Sodium 139, Potassium 4.3, Chloride 105, Carbon Dioxide 22.1, Anion Gap 11, BUN 21 H, Creatinine 0.83, Estim Creat Clear Calc 51.28, Est GFR (MDRD) Non-Af 73, BUN/Creatinine Ratio 24.8 H, Glucose 95, Calcium 9.3 12/28/24 06:24: POC Glucose 108 H 12/28/24 11:22: POC Glucose 90 Micro: Microbiology 12/23/24 16:50 Wound - Right Foot Gram Stain - Final 05/23/25 16:50 Wound - Right Foot Wound Culture - Final Pseudomonas aeruginosa Coag Negative Staph Gram positive yareli 12/23/24 16:50 Wound - Right Foot Skin and Soft Tissue MRSA/MSSA (PCR - Final 12/24/24 18:25 Stool Enteric Bacteriology - Final 12/24/24 18:25 Stool Clostridioides difficile (PCR) - Final Radiography Diagnostic Testing: Radiology Impression Extremity Arterial Study 12/23/24 19:44 Interpretation Summary Triphasic Doppler waveforms are noted at ankle level bilaterally. Pulse-volume recordings appear satisfactory at all levels bilaterally. Resting ankle-brachial indices are normal bilaterally. Digital-brachial indices are normal bilaterally. There is no evidence of significant arterial occlusive disease in the lower extremities bilaterally. Ordering Physician: Lupillo Ware Referring Physician: Adiel Walls Performed By: Nichol Huang RVT Social Homelessness:: Sheltered Physical Exam Const alert, oriented x3 and no apparent distress General Appearance: cooperative and well developed HEENT normocephalic, head/scalp atraumatic, moist oral mucous membranes, oropharynx normal and gingiva normal Eyes PERRL and EOMs intact bilaterally Neck no lymphadenopathy and supple Lymph Lymphatic: no lymphadenopathy noted and no lymphedema noted Resp normal respiratory effort, normal air movement and clear to auscultation bilaterally Cardio regular rate, regular rhythm, S1 normal heart sound, S2 normal heart sound and no murmurs GI normal to inspection, nondistended, normoactive bowel sounds, soft to palpation, non-tender and non-distended Extremity Extremity Narrative: RLE wrapped in bandage General Extremity: no tenderness to palpation of joints or extremities Skin Skin Narrative: as under extremities Neuro no focal motor deficits and no sensory deficits noted Motor Exam: strength 5/5 throughout and general weakness Psych thought process normal, cooperative and affect normal Appearance: appropriate Assessment & Plan Assessment/Plan (1) Cellulitis of right lower limb: (2) 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 Right lower extremity wrapped in bandage. On IV Zosyn. Wound cultures pending. * Also on IV vancomycin. * PT OT on board. Fall precautions. * Per podiatry to keep right heel offloaded and no weightbearing on the right foot. * Right foot MRI showed soft tissue ulcer underlying the posterior aspect of the calaneum and underlying soft tissue edema and swelling suggestive of cellulitis without drainable abscess, underlying bone marrow edema of hte posterior aspect of the calcaneus sugggestive of osteomyelitis. * Wound cultures so far growing gram-negative rods possibly Pseudomonas species, staph species and gram positive yareli. * management as per podiatry * ID on board; per ID, to continue IV vancomycin and zosyn. #Type 2 diabetes mellitus with peripheral neuropathy: * On insulin sliding scale. Accuhecks ACHS. * A1C is 5.7 #Diarrhea * resolved. * on loperamide prn. C Diff was negative * #Hypertension * On lisinopril. #Hypokalemia: resolved. K is 3.9. DVT prophylaxis: SCDs. On lovenox Disposition: * Patient is currently homeless and lives in a van with 10 other relatives. * Case management on board to help facilitate discharge. Charges/Coding Visit Charges Inpatient E&M: 32189 Subs Hosp L2
[2024-12-28] MEDS: Menthol/Lanolin/Calamine/Znox 113 GM Tube 1 APPLIC TOPICAL ×2 (12:50→21:45)
[2024-12-28 13:46] VITALS: PULSE 80
[2024-12-28 15:00] VITALS: BP 134/78; PULSE 72; RESP 18; TEMP 36.6; O2SAT 97
--- NOTE | 2024-12-28 15:52 | PN.ID_ITS ---
Physical Exam Narrative Feeling better, foot improved, no fever, diarrhea better. Const alert and no apparent distress General Appearance: cooperative Resp normal air movement and clear to auscultation bilaterally Cardio regular rate and regular rhythm GI soft to palpation, non-tender and non-distended Skin Skin Narrative: R foot wrapped ID ID: Route of nutrition/ use of supplements: [] Nutritional Intake: [] IV Site: [] Gillespie Catheter: [] Assessment & Plan Assessment/Plan (1) Diabetes mellitus with diabetic polyneuropathy: (2) Foot osteomyelitis, right: PLAN: Dr. Ware following. MRI showed osteo in heel. Wound cx with PsA, CoNS, and GPR. Cont vanc/zosyn. Spoke with micro lab, requested CoNS workup. Pt currently homeless. Plan at this point is po abx for 6 weeks at discharge. Will check EKG for QTC prior to starting po cipro. Will follow, d/w welfare case worker
--- NOTE | 2024-12-28 15:52 | EKG12_ITS ---
Test Reason : Blood Pressure : */* mmHG Vent. Rate : 69 BPM Atrial Rate : 69 BPM P-R Int : 148 ms QRS Dur : 88 ms QT Int : 412 ms P-R-T Axes : 69 63 19 degrees QTcB Int : 441 ms Normal sinus rhythm Nonspecific T wave abnormality Abnormal ECG When compared with ECG of 27-Sep-2015 18:02, ST no longer depressed in Anterior leads T wave inversion less evident in Inferior leads T wave inversion no longer evident in Anterior leads Confirmed by ANGEILNA RANDOLPH ([id number]), photograph editor RANJAN MCCOLLUM ([id number]) on 01/02/2025 9:36:22 AM Referred By: Confirmed By: ANGELINA RANDOLPH
[2024-12-28 16:32] LABS: Bedside Glucose 107 mg/dL (74-106)
[2024-12-28 18:53] LABS: Vancomycin, Trough Level 19.2 ug/mL (5.0-15.0)
--- NOTE | 2024-12-28 18:58 | NURSING ---
vanc trough drawn @ 1837-no result yet, no vanc dose has arrived at this time
[2024-12-28] MEDS: 0.9% Saline Lock 10 ML Syringe IV (20:04)
[2024-12-28 20:06] VITALS: BP 130/66; PULSE 66; RESP 15; TEMP 36.7; O2SAT 95
--- NOTE | 2024-12-28 20:47 | PCM.RX.CS ---
Consult Antibiotic Management Pharmacy has been consulted to manage selected antibiotic: Vancomycin Type of Intervention Type of Consult: Follow-up Suspected Infection Suspected Infection: Skin/Soft tissue Labs Labs: Sodium 139 mmol/L (133-145) 12/28/24 05:23 Potassium 4.3 mmol/L (3.3-5.1) 12/28/24 05:23 Chloride 105 mmol/L (98-108) 12/28/24 05:23 Carbon Dioxide 22.1 mmol/L (21.0-32.0) 12/28/24 05:23 Anion Gap 11 (5-15) 12/28/24 05:23 BUN 21 mg/dL (4-19) H 12/28/24 05:23 Creatinine 0.83 mg/dL (0.70-1.20) 12/28/24 05:23 Est GFR (MDRD) Non-Af 73 (>60) 12/28/24 05:23 BUN/Creatinine Ratio 24.8 RATIO (10-20) H 12/28/24 05:23 Glucose 95 mg/dL (70-99) 12/28/24 05:23 Vancomycin Trough 19.2 ug/mL (5.0-15.0) H 12/28/24 18:15 Random Vancomycin 14.0 ug/mL (0.0-15.0) 12/27/24 05:11 Microbiology Microbiology: Microbiology 12/23/24 16:50 Wound - Right Foot Gram Stain - Final 12/23/24 16:50 Wound - Right Foot Wound Culture - Final Pseudomonas aeruginosa Staphylococcus simulans Gram positive yareli 12/23/24 16:50 Wound - Right Foot Skin and Soft Tissue MRSA/MSSA (PCR - Final 12/24/24 18:25 Stool Enteric Bacteriology - Final 12/24/24 18:25 Stool Clostridioides difficile (PCR) - Final Pharmacy Plan for Drug Dosing Pharmacy Plan for Drug Dosing: VANCOMYCIN LEVEL RECEIVED Current Vancomycin Dose: 1000 mg q12h Number of Doses Received: 3 Vancomycin Level: 19.2 Hours Since Last Dose: 12.25 Renal Function: Renal Function Trend: Lab/Micro: Vancomycin Plan/Comments: Trough came back at 19.2 @12.25 hr after last dose. Continue same dose and frequency. Pending Level:[id number] @ 0630 Pharmacy Service will continue to monitor and adjust dosing as required.
[2024-12-28] MEDS: Atorvastatin Calcium 40 MG Tablet PO (21:42)
[2024-12-28 22:53] LABS: Bedside Glucose 103 mg/dL (74-106)
[2024-12-29 03:48] VITALS: BP 154/67; PULSE 66; RESP 15; TEMP 36.3; O2SAT 95
[2024-12-29 05:37] LABS: Absolute Lymphocyte Count 1.45 X10^3/uL (0.83-4.51); Absolute Neutrophil Count 4.3 X10^3/uL (2.0-7.7); Basophil# 0.08 X10^3/uL; Basophil% 1.2 % (0-1); Eosinophil# 0.38 X10^3/uL; Eosinophils% 5.5 % (0-5); Hematocrit 38.6 % (37-47); Hemoglobin 12.3 g/dL (12.0-15.0); Lymphocyte # 1.45 X10^3/ul (0.83-4.51); Lymphocyte % 21.2 % (19-41); Mean Corp Hgb Conc 31.9 g/dL (32-36); Mean Corpuscular Hgb 27.8 pg (27.0-32.0); Mean Corpuscular Volume 87.1 fL (81-99); Mean Platelet Vol. 9.4 fl (6.2-12.0); Monocyte# 0.57 X10^3/uL; Monocyte% 8.3 % (0-10); NRBC Flagged by Analyzer 0 % (0-5); Neutrophil # 4.34 X10^3/uL (2.7-7.7); Neutrophil % 63.4 % (47-70); Platelet Count 348 K/mm3 (150-450); RBC Distribution Width CV 14.3 % (11.6-14.6); RBC Distribution Width SD 45.5 fl (35.1-43.9); Red Blood Count 4.43 M/mm3 (4.2-5.4); White Blood Count 6.9 K/mm3 (4.4-11.0)
[2024-12-29] MEDS: Piperacil/Tazobactam 3.375 GM in 0.9% Normal Saline (50mL MB+) 50 ML IV ×3 (06:15→22:15)
[2024-12-29 06:32] LABS: Anion Gap 11 (5-15); BUN 16 mg/dL (4-19); BUN/Creat Ratio 17.3 RATIO (10-20); Calcium,Total 9.4 mg/dL (7.6-11.0); Chloride 108 mmol/L (98-108); Creatinine, Serum 0.91 mg/dL (0.70-1.20); EST Glomerular Filtration Rate 65 (>60); Estimated Creatinine Clearance 46.77 ml/min (50-250); Glucose 96 mg/dL (70-99); Potassium 4.4 mmol/L (3.3-5.1); Sodium Level 141 mmol/L (133-145)
[2024-12-29 06:52] LABS: Bedside Glucose 94 mg/dL (74-106)
[2024-12-29] MEDS: Vancomycin IV 1,000 MG/200 ML BAG 200 MG IV ×2 (07:06→21:08)
[2024-12-29] MEDS: Menthol/Lanolin/Calamine/Znox 113 GM Tube 1 APPLIC TOPICAL ×3 (07:06→21:14)
[2024-12-29] MEDS: Aspirin 81 MG TAB.CHEW PO (08:43)
[2024-12-29] MEDS: Lisinopril 5 MG Tablet PO (08:43)
[2024-12-29] MEDS: Enoxaparin 40 MG/0.4 ML Syringe SC (08:43)
[2024-12-29] MEDS: Glucerna Shake 120 ML LIQUID PO ×3 (08:46→17:30)
[2024-12-29] MEDS: Loperamide 2 MG Capsule PO (08:46)
[2024-12-29 09:00] VITALS: BP 147/80; PULSE 67; RESP 16; TEMP 36.3; O2SAT 98
[2024-12-29 11:45] LABS: Bedside Glucose 89 mg/dL (74-106)
--- NOTE | 2024-12-29 11:45 | CASEMGMT ---
Addendum entered by Jeri Lundberg 12/29/24 15:03: Referral sent to [employer] via [employer] at this time for FWW. Original Note: RN CM into pt room, pt sitting in chair in no distress. Pt states she feels she can maintain her non wt bearing status if she has a walker. Pt does not have one. Provided pt with a list of local in network [employer] companies, pt chose [employer]. Pt denies needing any therapy, she [place] walks at the park often. Pt states she feels comfortable with wound care and she was doing this prior to this hospitalization. Pt denies any further homegoing needs at this time.
[2024-12-29] MEDS: 0.9% Saline Lock 10 ML Syringe IV (15:14)
[2024-12-29 16:15] VITALS: BP 127/70; PULSE 77; RESP 16; TEMP 36.6; O2SAT 95
--- NOTE | 2024-12-29 16:27 | PCM.PN.ID ---
Physical Exam Narrative Feeling better, foot improving, mild diarrhea improved with imodium Const alert and no apparent distress General Appearance: cooperative Resp normal air movement and clear to auscultation bilaterally Cardio regular rate and regular rhythm GI soft to palpation, non-tender and non-distended Skin Skin Narrative: foot wrapped ID ID: Route of nutrition/ use of supplements: [] Nutritional Intake: [] IV Site: [] Gillespie Catheter: [] Assessment & Plan Assessment/Plan (1) Diabetes mellitus with diabetic polyneuropathy: (2) Foot osteomyelitis, right: PLAN: Dr. Ware following. MRI showed osteo in heel. Wound cx with PsA, CoNS, and GPR. Cont vanc/zosyn. Spoke with micro lab, requested CoNS workup. Pt currently homeless. Plan at this point is po cipro and augmentin for 6 weeks at discharge. Will need bmp, cbc, LFT in one week. ID followup in 2 weeks. Wrote rx for abx. Will follow
[2024-12-29 16:54] LABS: Bedside Glucose 108 mg/dL (74-106)
--- NOTE | 2024-12-29 16:59 | PCM.PROGNOTE ---
Subjective Subjective Patient was seen today for follow up on heel ulceration, right foot. She is sitting up in chair appears to be in good spirits. No f/c/n/v. Objective Data Objective Data Vital Signs: Vital Signs Temp Pulse Resp BP Pulse Ox O2 Del Method 97.4 F L 67 16 147/80 H 98 Room Air 12/29/24 09:00 12/29/24 09:00 12/29/24 09:00 12/29/24 09:00 12/29/24 09:00 12/29/24 10:00 Oxygen Delivery Method Room Air Weight: 65.68 kg Body Mass Index (BMI) 26.4 Intake & Output: Intake and Output for Last 24 Hours 12/27/24 12/28/24 12/29/24 23:59 23:59 23:59 Intake Total 800 / 800 1356 / 1656 600 / 600 Balance 800 / 800 1356 / 1656 600 / 600 Lab / Micro Data 12/29/24 05:15 12/29/24 05:15 Labs: Laboratory Results - last 24 hr 12/28/24 18:15: Vancomycin Trough 19.2 H 12/28/24 21:44: POC Glucose 103 12/29/24 05:15: WBC 6.9, RBC 4.43, Hgb 12.3, Hct 38.6, MCV 87.1, MCH 27.8, MCHC 31.9 L, RDW Std Deviation 45.5 H, RDW Coeff of Be 14.3, Plt Count 348, MPV 9.4, Immature Gran % (Auto) 0.400, Neut % (Auto) 63.4, Lymph % (Auto) 21.2, [place] % (Auto) 8.3, Eos % (Auto) 5.5 H, Baso % (Auto) 1.2 H, Absolute Neuts (auto) 4.3, Absolute Lymphs (auto) 1.45, Nucleated RBC % 0, Sodium 141, Potassium 4.4, Chloride 108, Carbon Dioxide 22.0, Anion Gap 11, BUN 16, Creatinine 0.91, Estim Creat Clear Calc 46.77 L, Est GFR (MDRD) Non-Af 65, BUN/Creatinine Ratio 17.3, Glucose 96, Calcium 9.4 12/29/24 06:31: POC Glucose 94 12/29/24 11:10: POC Glucose 89 12/29/24 16:37: POC Glucose 108 H Micro: Microbiology 12/23/24 16:50 Wound - Right Foot Gram Stain - Final 12/23/24 16:50 Wound - Right Foot Wound Culture - Final Pseudomonas aeruginosa Staphylococcus simulans Gram positive yareli 12/23/24 16:50 Wound - Right Foot Skin and Soft Tissue MRSA/MSSA (PCR - Final 12/24/24 18:25 Stool Enteric Bacteriology - Final 12/24/24 18:25 Stool Clostridioides difficile (PCR) - Final Social Homelessness:: Sheltered Physical Exam Const alert, oriented x3 and no apparent distress Constitutional Narrative: Dressing right foot is clean, dry and intact, reviewed wound photos from today - appears right heel wound is healing appropriately. 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 Reviewed diagnostic data. MRI right foot: there is noted bone marrow edema to the posterior plantar calcaneus consistent with osteomyelitis. Right heel wound is healing and improving. A culture has been obtained and reviewed - pseudomonas sp, staph, and gram positive yareli, patient is on IV antibiotics Vancomycin and Zosyn, C. diff PCR noted to be negative. ID on consult. Right heel ulceration was debrided today in excisional fashion using a 15 blade down to healthy viable base and margins - down to and including the subcutaneous tissue layer, the area debrided measured 1.8cm x 1.7cm and down to and including the subcutaneous tissue layer (improved). No anesthesia was needed due to patient's peripheral neuropathy. Hemostasis was achieved using gauze and pressure. There was minimal blood loss. A dressing was applied to the site using betadine soln, 4x4 gauze, kerlix and emilee dressing. Change BID. Keep right heel offloaded. No weightbearing right foot. Keep right foot protected using CAM boot when patient is up and in transit. LEAS reviewed and noted to have good arterial flow to foot bilateral. Podiatry will continue to follow.
[2024-12-29 21:11] VITALS: BP 130/70; PULSE 69; RESP 15; TEMP 36.6; O2SAT 94
[2024-12-29] MEDS: Atorvastatin Calcium 40 MG Tablet PO (21:13)
[2024-12-29 23:00] VITALS: RESP 15
[2024-12-29 23:45] LABS: Bedside Glucose 131 mg/dL (74-106)
[2024-12-30 03:50] VITALS: BP 122/67; PULSE 75; RESP 15; TEMP 36.4; O2SAT 95
[2024-12-30] MEDS: Menthol/Lanolin/Calamine/Znox 113 GM Tube 1 APPLIC TOPICAL (05:49)
[2024-12-30] MEDS: Piperacil/Tazobactam 3.375 GM in 0.9% Normal Saline (50mL MB+) 50 ML IV (05:49)
[2024-12-30 06:44] LABS: Absolute Lymphocyte Count 1.24 X10^3/uL (0.83-4.51); Absolute Neutrophil Count 5.5 X10^3/uL (2.0-7.7); Basophil# 0.08 X10^3/uL; Eosinophil# 0.31 X10^3/uL; Hematocrit 38.9 % (37-47); Hemoglobin 12.5 g/dL (12.0-15.0); Lymphocyte # 1.24 X10^3/ul (0.83-4.51); Mean Corp Hgb Conc 32.1 g/dL (32-36); Mean Corpuscular Hgb 27.5 pg (27.0-32.0); Mean Corpuscular Volume 85.5 fL (81-99); Mean Platelet Vol. 9.1 fl (6.2-12.0); Monocyte# 0.58 X10^3/uL; Monocyte% 7.5 % (0-10); NRBC Flagged by Analyzer 0 % (0-5); Neutrophil # 5.52 X10^3/uL (2.7-7.7); Neutrophil % 71.1 % (47-70); Platelet Count 387 K/mm3 (150-450); RBC Distribution Width CV 14.2 % (11.6-14.6); RBC Distribution Width SD 44.3 fl (35.1-43.9); Red Blood Count 4.55 M/mm3 (4.2-5.4); White Blood Count 7.8 K/mm3 (4.4-11.0)
[2024-12-30 07:21] LABS: Anion Gap 10 (5-15); BUN 13 mg/dL (4-19); BUN/Creat Ratio 15.2 RATIO (10-20); Calcium,Total 9.3 mg/dL (7.6-11.0); Carbon Dioxide 21.8 mmol/L (21.0-32.0); Chloride 106 mmol/L (98-108); Creatinine, Serum 0.87 mg/dL (0.70-1.20); EST Glomerular Filtration Rate 69 (>60); Estimated Creatinine Clearance 48.92 ml/min (50-250); Glucose 100 mg/dL (70-99); Sodium Level 138 mmol/L (133-145); Vancomycin, Trough Level 22.9 ug/mL (5.0-15.0)
[2024-12-30] MEDS: Vancomycin Trough/Random Due 1 LAB MC (07:27)
[2024-12-30 07:28] LABS: Bedside Glucose 98 mg/dL (74-106)
--- NOTE | 2024-12-30 07:32 | PCM.RX.CS ---
Consult Antibiotic Management Pharmacy has been consulted to manage selected antibiotic: Vancomycin Type of Intervention Type of Consult: Follow-up Suspected Infection Suspected Infection: Skin/Soft tissue and Osteomyelitis Prior Doses of Antibiotics Prior Doses of Antibiotics Received/Current Regimen: current dose is vanc 1000mg IV q12h Labs Labs: Sodium 138 mmol/L (133-145) 12/30/24 06:33 Potassium 4.0 mmol/L (3.3-5.1) 12/30/24 06:33 Chloride 106 mmol/L (98-108) 12/30/24 06:33 Carbon Dioxide 21.8 mmol/L (21.0-32.0) 12/30/24 06:33 Anion Gap 10 (5-15) 12/30/24 06:33 BUN 13 mg/dL (4-19) 12/30/24 06:33 Creatinine 0.87 mg/dL (0.70-1.20) 12/30/24 06:33 Est GFR (MDRD) Non-Af 69 (>60) 12/30/24 06:33 BUN/Creatinine Ratio 15.2 RATIO (10-20) 12/30/24 06:33 Glucose 100 mg/dL (70-99) H 12/30/24 06:33 Vancomycin Trough 22.9 ug/mL (5.0-15.0) H 12/30/24 06:33 Random Vancomycin 14.0 ug/mL (0.0-15.0) 12/27/24 05:11 Microbiology Microbiology: Microbiology 12/23/24 16:50 Wound - Right Foot Gram Stain - Final 12/23/24 16:50 Wound - Right Foot Wound Culture - Final Pseudomonas aeruginosa Staphylococcus simulans Gram positive yareli 12/23/24 16:50 Wound - Right Foot Skin and Soft Tissue MRSA/MSSA (PCR - Final 12/24/24 18:25 Stool Enteric Bacteriology - Final 12/24/24 18:25 Stool Clostridioides difficile (PCR) - Final Dosing Weight Weight used for dosin.7 kg Estimated Creatinine Clearance Estimated Creatinine Clearance: 49ml/min Pharmacy Plan for Drug Dosing Pharmacy Plan for Drug Dosing: The vanc trough drawn at 06:33 today (approx 9.5 hours after the previous dose) was 22.9. The previous dose was given late so the trough was drawn at only 9.5 hours. It would have been a little lower if that dose had been given on time. Nevertheless, will hold current dose since trough is high and get a random level in 8 hours per protocol. That level will determine when to resume dosing. Pharmacy Service will continue to monitor and adjust dosing as required. Follow-Up Labs Follow-Up Labs: Trough: Vancomycin (random) Date/Time Labs Ordered Labs to be done on [date and time ordered]: 12/30 14:00
[2024-12-30 07:57] VITALS: BP 146/71; PULSE 75; RESP 16; TEMP 36.7; O2SAT 95
[2024-12-30] MEDS: Glucerna Shake 120 ML LIQUID PO ×2 (08:09→12:58)
[2024-12-30] MEDS: Loperamide 2 MG Capsule PO (08:10)
[2024-12-30] MEDS: Lisinopril 5 MG Tablet PO (08:10)
[2024-12-30] MEDS: Enoxaparin 40 MG/0.4 ML Syringe SC (08:10)
[2024-12-30] MEDS: Acetaminophen 325 MG Tablet 650 MG PO (08:10)
[2024-12-30] MEDS: Aspirin 81 MG TAB.CHEW PO (08:10)
--- NOTE | 2024-12-30 10:05 | CASEMGMT ---
Addendum entered by Jeri Lundberg 12/30/24 13:41: Head Refrigeration Engineer notified [facility] that when she called to make a PCP f/u appt, Dr. Walls office states pt is no longer a pt there and they cannot accept her with another provider. [facility] into pt room, pt sitting up on bed, dressed, packed ready for dc. Pt made aware of the PCP stating she is no longer a pt. Provided pt with a local healthcare directory. Discussed [facility] with pt. Pt states that is where her niece goes, so she would like to go there. Pt aware that she has blood work that needs done in a week and the importance of obtaining PCP. Pt denies any need for assistance with this. She states her niece will assist her. Addendum entered by Jeri Lundberg 12/30/24 10:35: Returned call from from [facility] DAVON Flores at [phone], she is aware of the dc plan. Original Note: Pt walker is delivered to the room. Pt denies any homegoing needs. Pt to be sent home with wound supplies, spoke to wound nurse.
--- NOTE | 2024-12-30 12:23 | DS.PCM_ITS ---
Providers Date of Admission: 12/23/24 Date of Discharge: 12/30/24 Primary Care Physician: Dr. Adiel Walls MD Consultations 12/23/24 16:25 Consult: Onc/Wound/supervisor pigment making Routine Comment: Comments:: R heel ulcer, diabetic, infected Consult: Podiatry Routine Consulting Provider: Lupillo Ware Reason for Consult: R heel infected DM foot ulcer EMERGENT Consult: No MD Notified: Yes Date Notified: 12/23/24 Time Notified: 16:07 Method of Notification: ED Physician Initiated 12/27/24 07:13 Consult: Infectious Disease Routine Consulting Provider: Derek Tabares Reason for Consult: osteomyelitis of right foot EMERGENT Consult: No MD Notified: Yes Date Notified: 12/27/24 Time Notified: 07:13 Method of Notification: Text Reason For Visit: DIABETIC FOOT INFECTION, CELLULITIS Diagnosis Discharge Diagnosis (1) Non-pressure chronic ulcer of right heel and midfoot with fat layer exposed: Status: Chronic Code(s): L97.412 - Non-pressure chronic ulcer of right heel and midfoot with fat layer exposed (2) Cellulitis of right lower limb: Status: Acute Code(s): L03.115 - Cellulitis of right lower limb (3) Diabetes mellitus with diabetic polyneuropathy: Status: Acute Code(s): E11.42 - Type 2 diabetes mellitus with diabetic polyneuropathy (4) Type 2 diabetes mellitus with foot ulcer: Status: Acute Code(s): E11.621 - Type 2 diabetes mellitus with foot ulcer; L97.509 - Non-pressure chronic ulcer of other part of unspecified foot with unspecified severity Plan #Acute on chronic diabetic foot ulcer * S/p bedside debridement by podiatry. Right lower extremity wrapped in bandage. On IV Zosyn. * Also on IV vancomycin. * PT OT on board. Fall precautions. * Per podiatry to keep right heel offloaded and no weightbearing on the right foot. * Right foot MRI showed soft tissue ulcer underlying the posterior aspect of the calaneum and underlying soft tissue edema and swelling suggestive of cellulitis without drainable abscess, underlying bone marrow edema of hte posterior aspect of the calcaneus suggestive of osteomyelitis. * Wound cultures so far growing gram-negative rods possibly Pseudomonas species, staph species and gram positive yareli. * management as per podiatry * ID on board; per ID, to continue IV vancomycin and zosyn. #Type 2 diabetes mellitus with peripheral neuropathy: * On insulin sliding scale. Accuhecks ACHS. * A1C is 5.7 #Diarrhea * resolved. * on loperamide prn. C Diff was negative * #Hypertension * On lisinopril. #Hypokalemia: resolved. K is 3.9. DVT prophylaxis: SCDs. On lovenox Disposition: * Patient is currently homeless and lives in a van with 10 other relatives. * Case management on board to help facilitate discharge. Medications at Discharge Home Medications Ranitidine [Zantac] 300 mg PO DAILY 09/27/15 Verapamil Hcl [Verapamil Er] 180 mg PO DAILY 09/27/15 albuterol sulfate 90 mcg/actuation aerosol inhaler (ProAir HFA) 2 puff inhalation Q6H PRN PRN Shortness Of Breath 09/27/15 aspirin 81 mg tablet,delayed release 81 mg PO DAILY@0800 09/27/15 atorvastatin 40 mg tablet 40 mg PO QHS 09/27/15 baclofen 10 mg tablet 10 mg PO TID 09/27/15 enalapril maleate 20 mg tablet (Vasotec) 20 mg PO BID 09/27/15 etodolac 500 mg tablet 500 mg PO BID 09/27/15 fluticasone propionate 50 mcg/actuation nasal spray,suspension 1 spray DAILY 09/27/15 hydrochlorothiazide 25 mg tablet 25 mg PO DAILY 09/27/15 loratadine 10 mg tablet (Allergy Relief (loratadine)) 10 mg PO DAILY 09/27/15 metformin 500 mg tablet 500 mg PO BIDCM 09/27/15 multivitamin with folic acid 400 mcg tablet (Thera) 1 tab PO DAILY 09/27/15 trazodone 50 mg tablet 50 mg PO QHS 09/27/15 Ibuprofen [Motrin] 800 mg PO TID PRN PRN Fever #20 tabs 08/22/16 benzonatate 100 mg capsule 100 mg PO TID PRN PRN Cough ##20 08/22/16 oseltamivir 75 mg capsule 75 mg PO BID ##10 08/22/16 acetaminophen 500 mg tablet (Tylenol Extra Strength) 1,000 - 1,500 mg PO Q6H PRN fever or pain 12/23/24 amoxicillin 875 mg-potassium clavulanate 125 mg tablet 1 tab PO BID #70 tabs 12/29/24 ciprofloxacin HCl 500 mg tablet (Cipro) 500 mg PO BID #70 tabs 12/29/24 Hospital Course Operations None Procedures None Summary of Care Provided Minutes Spent on Discharge: 48 Hospital Course: Patient is a 74-year-old female with a past medical history as outlined including type 2 diabetes mellitus and hypertension who was admitted to the ED on 12/23/2024 with a concern of worsening of chronic ulceration on her right foot with associated right foot swelling and foul discharge. Patient was homeless and living in her car and had not seen her smalltalk developer or her primary care doctor for more than a year. She denied any fever or chills. Her blood pressure was markedly elevated at 215/106 but subsequently improved. WBC was 7.4. Foot x- ray showed no evidence of osteomyelitis. Podiatry was consulted and she was started on IV vancomycin and Zosyn. Infectious disease was also consulted. Right foot MRI showed soft tissue ulcer overlying the posterior aspect of the calcaneum and underlying soft tissue edema and swelling suggestive of cellulitis without drainable abscess and underlying bone marrow edema of the posterior aspect of the calcaneus suggestive of osteomyelitis. Wound cultures grew Pseudomonas, staph species and a gram-positive yareli which was pending speciation. ID was consulted. She had bedside debridement done by podiatry. Right foot was placed in a podiatry boot. ID recommended that patient could be discharged home on a 6-week course of p.o. ciprofloxacin and p.o. Augmentin. She was discharged on 12/30/2024. She is to follow-up with her primary care doctor and podiatry as well as infectious disease within 1 week. She is to have a follow- up BMP, CBC and LFT within 1 week. Patient seen and examined prior to discharge. She had no complaints and had an uneventful night. Review of systems otherwise negative. Labs and vitals reviewed. Home medication reviewed and reconciled. Physical Exam Const alert, oriented x3, no apparent distress and well nourished General Appearance: cooperative, comfortable and well developed HEENT normocephalic, head/scalp atraumatic, hearing grossly normal bilaterally, moist oral mucous membranes and oropharynx normal Mouth: oral and palatal mucosa normal Eyes PERRL and EOMs intact bilaterally Neck supple Lymph Lymphatic: no lymphedema noted Resp normal respiratory effort, normal air movement and clear to auscultation bilaterally Cardio regular rate, regular rhythm, S1 normal heart sound, S2 normal heart sound and no murmurs GI normal to inspection, nondistended, normoactive bowel sounds, soft to palpation, non-tender and non-distended Extremity Extremity Narrative: RLE wrapped in bandage General Extremity: no tenderness to palpation of joints or extremities Skin Skin Narrative: as under extremities Neuro CN's II-XII intact bilaterally, no focal motor deficits and no sensory deficits noted Motor Exam: strength 5/5 throughout and general weakness Psych thought process normal, cooperative and affect normal Appearance: appropriate Medical Records Data Homelessness:: Sheltered Weight / BMI Weight Weight: 144 lb 12.8 oz Body Mass Index (BMI) 26.4 ABG / Lab / Microbiology Data 12/30/24 06:33 12/30/24 06:33 Laboratory: Laboratory Results - last 24 hr 12/29/24 22:19: POC Glucose 131 H 12/30/24 06:33: WBC 7.8, RBC 4.55, Hgb 12.5, Hct 38.9, MCV 85.5, MCH 27.5, MCHC 32.1, RDW Std Deviation 44.3 H, RDW Coeff of Be 14.2, Plt Count 387, MPV 9.1, Immature Gran % (Auto) 0.400, Neut % (Auto) 71.1 H, Lymph % (Auto) 16.0 L, [place] % (Auto) 7.5, Eos % (Auto) 4.0, Baso % (Auto) 1.0, Absolute Neuts (auto) 5.5, Absolute Lymphs (auto) 1.24, Nucleated RBC % 0, Sodium 138, Potassium 4.0, Chloride 106, Carbon Dioxide 21.8, Anion Gap 10, BUN 13, Creatinine 0.87, Estim Creat Clear Calc 48.92 L, Est GFR (MDRD) Non-Af 69, BUN/Creatinine Ratio 15.2, G lucose 100 H, Calcium 9.3, Vancomycin Trough 22.9 H 12/30/24 06:47: POC Glucose 98 12/30/24 12:57: POC Glucose 131 H Microbiology: Microbiology 12/23/24 16:50 Wound - Right Foot Gram Stain - Final 12/23/24 16:50 Wound - Right Foot Wound Culture - Final Pseudomonas aeruginosa Staphylococcus simulans Gram positive yareli 12/23/24 16:50 Wound - Right Foot Skin and Soft Tissue MRSA/MSSA (PCR - Final 12/24/24 18:25 Stool Enteric Bacteriology - Final 12/24/24 18:25 Stool Clostridioides difficile (PCR) - Final D/C Instructions Discharge Diet: Low fat / Low cholesterol Discharge Activity: Return to Normal Activity Weight Bearing Status: Weight bearing as tolerated Call your doctor if you observe: Fever of 101 or Higher, Shortness of breath, Dizziness, Swelling in the ankles and Chest pain DC O2, CPAP, BIPAP Needs Home O2 Discharge instructions: No DC home with Oxygen: No Meaningful Use Info Meaningful Use Meaningful Use Diagnoses (Choose all that apply): None applicable Ischemic Stroke Statin Dosing Therapy Reference: STATIN DOSE THERAPY REFERENCE: * Patients > 75 years receive moderate or high dose statin therapy. * Patients 75 years or YOUNGER should receive HIGH intensity statin dose unless contraindicated. You will be required to document reason for non-treatment if statin daily dose does not meet guidelines. HIGH DOSE STATIN THERAPY DAILY Atorvastatin > than or = to 40 mg Rosuvastatin > than or = to 20 mg Amlodipine + Atorvastatin > than or = to 2.5/40 mg Ezetimibe + Simvastatin 10/80 mg Simvastatin 80mg Discharge Plan Admission Admit Date/Time: 12/23/24 15:43 Primary Reason for Your Visit: diabetic foot ulcer Attending Provider: Caitlin Taylor Primary Care Provider: Adiel Walls Consulting Providers: Lupillo Ware; Cristiane Rodriguez; Derek Tabares Instructions Patient Instructions: Diabetes Foot Infections Tx, Diabetes: Keeping Feet Healthy Additional Instructions / Restrictions: to see PCP for follow up CBC, BMP and LFT within one week. Discharge Orders/Prescriptions Prescriptions: New ciprofloxacin HCl [Cipro] 500 mg tablet 500 mg PO BID Qty: 70 0RF amoxicillin-pot clavulanate 875-125 mg tablet 1 tab PO BID Qty: 70 0RF Continued trazodone 50 MG tablet 50 mg PO QHS aspirin 81 MG tablet 81 mg PO DAILY@0800 baclofen 10 MG tablet 10 mg PO TID albuterol sulfate [ProAir HFA] 1 PUFF inhaler 2 puff inhalation Q6H PRN PRN (Reason: Shortness Of Breath) etodolac 500 MG tablet 500 mg PO BID fluticasone propionate 1 SPRAY spray,suspension 1 spray NASAL DAILY atorvastatin 40 MG tablet 40 mg PO QHS metformin 500 MG tablet 500 mg PO BIDCM enalapril maleate [Vasotec] 20 MG tablet 20 mg PO BID hydrochlorothiazide 25 MG tablet 25 mg PO DAILY loratadine [Allergy Relief (loratadine)] 10 MG tablet 10 mg PO DAILY multivitamin with folic acid [Thera] 1 TABLET tablet 1 tab PO DAILY Ranitidine [Zantac] 300 MG tablet 300 mg PO DAILY Verapamil Hcl [Verapamil Er] 180 MG Cap24h.Pel 180 mg PO DAILY benzonatate 100 MG capsule 100 mg PO TID PRN PRN (Reason: Cough) Qty: 20 0RF oseltamivir 75 MG capsule 75 mg PO BID Qty: 10 0RF Ibuprofen [Motrin] 800 MG tablet 800 mg PO TID PRN PRN (Reason: Fever) Qty: 20 0RF acetaminophen [Tylenol Extra Strength] 500 mg tablet 1,000 - 1,500 mg PO Q6H PRN (Reason: fever or pain) Referrals / Follow Up: Lupillo Ware DPM [Med Staff - Active Staff] - Within 1 Week Derek Tabares MD [Med Staff - Active Staff] - Within 1 Week Adiel Walls MD [Primary Care Provider] - Within 1 Week Disposition Disposition (needs filled in before D/C Order can be placed): Home, Self Care Charges/Coding Visit Charges Inpatient E&M: 49233 Disch Hosp >30min
[2024-12-30 13:21] VITALS: BP 120/66; PULSE 74; RESP 16; TEMP 36.8; O2SAT 95
[2024-12-30 13:32] LABS: Bedside Glucose 131 mg/dL (74-106)
== END 2024-12-30 13:52 | disposition home or self-care (01) | DRG 623 ==
LOC: ED 14:02 → MS3 15:23
PROVIDERS: Internal Medicine; Admitting Provider Internal Medicine; Emergency Provider Emergency Medicine; PCP Internal Medicine; Visit Provider Student in an Organized Health Care Education/Training Program
DX: E11.69 Type 2 diabetes mellitus with other specified complication (principal); L03.115 Cellulitis of right lower limb; L97.412 Non-pressure chronic ulcer of right heel and midfoot with fat layer exposed; M86.171 Other acute osteomyelitis, right ankle and foot; Z59.01 Sheltered homelessness; B96.5 Pseudomonas (aeruginosa) (mallei) (pseudomallei) as the cause of diseases classified elsewhere; F31.9 Bipolar disorder, unspecified; E11.621 Type 2 diabetes mellitus with foot ulcer; I10 Essential (primary) hypertension; E11.42 Type 2 diabetes mellitus with diabetic polyneuropathy; E87.6 Hypokalemia; Z79.1 Long term (current) use of non-steroidal anti-inflammatories (NSAID); G89.29 Other chronic pain; Z79.84 Long term (current) use of oral hypoglycemic drugs; Z79.2 Long term (current) use of antibiotics
CPT/HCPCS: 36415; 73630; 73718; 80048; 80202; 82962; 83036; 85025; 85652; 87070; 87075; 87077; 87184; 87186; 87205; 87493; 87506; 87640; 93005; 93923; 97116; 97162; 97166; 97530; 97535; 97802; 97803; 99283; A4216